=== PATIENT | female | born 1965 | race Caucasian/White ===

== ENCOUNTER 2017-04-10 14:16 | Outpatient (RCR) | payer SELFPAY | END 2017-04-26 23:59 | LOC: NS 14:16 | PROVIDERS: Family Provider Family Medicine; PCP Family Medicine; Visit Provider Family Medicine | DX: E66.9 Obesity, unspecified (principal); Z68.30 Body mass index [BMI] 30.0-30.9, adult; Z71.3 Dietary counseling and surveillance | CPT/HCPCS: 97803 ==

== ENCOUNTER 2017-06-20 14:17 | Outpatient (RCR) | payer OTHER, SELFPAY | END 2017-06-24 23:59 | LOC: NS 14:17 | PROVIDERS: Family Provider Family Medicine; PCP Family Medicine; Visit Provider Family Medicine | DX: E66.9 Obesity, unspecified (principal); Z68.30 Body mass index [BMI] 30.0-30.9, adult; Z71.3 Dietary counseling and surveillance | CPT/HCPCS: 97803 ==

== ENCOUNTER 2017-07-18 14:00 | Outpatient (RCR) | payer OTHER, SELFPAY | END 2017-07-24 23:59 | LOC: NS 14:00 | PROVIDERS: Family Provider Family Medicine; PCP Family Medicine; Visit Provider Family Medicine | DX: E66.9 Obesity, unspecified (principal); Z68.30 Body mass index [BMI] 30.0-30.9, adult; Z71.3 Dietary counseling and surveillance | CPT/HCPCS: 97803 ==

== ENCOUNTER 2017-08-01 14:07 | Outpatient (RCR) | payer OTHER, SELFPAY | END 2017-08-24 23:59 | LOC: NS 14:07 | PROVIDERS: Family Provider Family Medicine; PCP Family Medicine; Visit Provider Family Medicine | DX: E66.9 Obesity, unspecified (principal); Z68.30 Body mass index [BMI] 30.0-30.9, adult; Z71.3 Dietary counseling and surveillance | CPT/HCPCS: 97803 ==

== ENCOUNTER 2017-09-12 16:49 | Outpatient (RCR) | payer SELFPAY | END 2017-09-23 23:59 | LOC: NS 16:49 | PROVIDERS: Family Provider Family Medicine; PCP Family Medicine; Visit Provider Family Medicine | DX: E66.9 Obesity, unspecified (principal); Z68.30 Body mass index [BMI] 30.0-30.9, adult; Z71.3 Dietary counseling and surveillance | CPT/HCPCS: 97803 ==

== ENCOUNTER → 2017-09-29 14:54 | Outpatient (CLI) | payer SELFPAY ==
[2017-09-29 17:44] LABS: Erythrocyte Sedimentation Rate 4 mm/hr (0-30)
[2017-09-29 17:48] LABS: Mean Corp Hgb Conc 33.3 g/gl (32-36); Mean Corpuscular Hgb 30.7 pg (27.0-32.0); Mean Corpuscular Volume 92.1 fL (81-99); Mean Platelet Vol. 10.7 fl (6.2-12.0); Platelet Count 259 K/mm3 (150-450); RBC Distribution Width CV 11.4 % (11.6-14.6); RBC Distribution Width SD 38.4 fl (35.1-43.9); Red Blood Count 4.56 M/mm3 (4.2-5.4); White Blood Count 5.9 K/mm3 (4.4-11.0)
[2017-09-29 17:52] LABS: Scan Indicated on CBC? Y/N NO
[2017-09-29 17:55] LABS: International Normalized Ratio 0.9; Prothrombin Time (Protime)PT. 12.6 SECONDS (11.7-14.9)
[2017-09-29 17:56] LABS: Partial Thromboplast Time 29.5 Seconds (24.1-36.2)
[2017-09-29 18:00] LABS: ALB/GLOB Ratio 1.1 RATIO (0.9-2.4); AST(SGOT) 39 U/L (15-37); Alanine Aminotransfer ALT/SGPT 56 U/L (13-56); Albumin, Serum 3.9 g/dL (3.2-5.0); Alkaline Phosphatase 105 U/L (45-117); Anion Gap 6 (5-15); BUN 17 mg/dL (7-18); BUN/Creat Ratio 22.1 RATIO (10-20); CRP < 2.90 mg/L (0.0-3.0); Chloride 103 mmol/L (98-107); Creatinine, Serum 0.77 mg/dL (0.55-1.02); EST Glomerular Filtration Rate 83 mL/min (>60); Est Glom Filt Rate - Afr Amer 101 mL/min (>60); Globulin 3.5 g/dL (2.2-4.2); Glucose 99 mg/dL (74-106); Potassium 3.7 mmol/L (3.5-5.1); Protein, Total 7.4 g/dL (6.4-8.2); Sodium Level 139 mmol/L (136-145)
[2017-10-03 09:19] LABS: ANTINUCLEAR ANTIBODIES DIRECT Negative (Negative)
== END ==
PROVIDERS: Family Provider Family Medicine; PCP Family Medicine; Visit Provider Nurse Practitioner Family
DX: L98.9 Disorder of the skin and subcutaneous tissue, unspecified (principal)
CPT/HCPCS: 36415; 80053; 85027; 85610; 85652; 85730; 86038; 86140

== ENCOUNTER 2017-11-07 14:28 | Outpatient (RCR) | payer SELFPAY | END 2017-11-24 23:59 | LOC: NS 14:28 | PROVIDERS: Family Provider Family Medicine; PCP Family Medicine; Visit Provider Family Medicine | DX: E66.9 Obesity, unspecified (principal); Z68.30 Body mass index [BMI] 30.0-30.9, adult; Z71.3 Dietary counseling and surveillance | CPT/HCPCS: 97803 ==

== ENCOUNTER 2017-12-12 08:53 | Outpatient (RCR) | payer SELFPAY | END 2017-12-24 23:59 | LOC: NS 08:53 | PROVIDERS: Family Provider Family Medicine; PCP Family Medicine; Visit Provider Family Medicine | DX: E66.9 Obesity, unspecified (principal); Z68.30 Body mass index [BMI] 30.0-30.9, adult; Z71.3 Dietary counseling and surveillance | CPT/HCPCS: 97803 ==

== ENCOUNTER 2018-01-09 08:13 | Outpatient (RCR) | payer SELFPAY | END 2018-01-24 23:59 | LOC: NS 08:13 | PROVIDERS: Family Provider Family Medicine; PCP Family Medicine; Referring Provider Family Medicine; Visit Provider Family Medicine | DX: E66.9 Obesity, unspecified (principal); Z68.30 Body mass index [BMI] 30.0-30.9, adult; Z71.3 Dietary counseling and surveillance | CPT/HCPCS: 97803 ==

== ENCOUNTER → 2018-03-22 11:11 | Outpatient (CLI) | payer SELFPAY ==
[2018-03-22 14:39] LABS: Free T3 2.7 pg/mL (2.18-3.98); T4 Free Direct 0.81 ng/dL (0.76-1.46); Thyroid Stim Hormone (TSH) 2.71 uIU/mL (0.358-3.74)
== END ==
PROVIDERS: Family Provider Family Medicine; PCP Family Medicine; Referring Provider Family Medicine; Visit Provider Family Medicine
DX: R53.83 Other fatigue (principal)
CPT/HCPCS: 36415; 84439; 84443; 84481

== ENCOUNTER 2018-03-28 13:33 | Outpatient (RCR) | payer SELFPAY | END 2018-03-28 15:34 | disposition home or self-care (01) | LOC: NS 13:33 | PROVIDERS: Family Provider Family Medicine; PCP Family Medicine; Referring Provider Family Medicine; Visit Provider Family Medicine | DX: E66.9 Obesity, unspecified (principal); Z68.30 Body mass index [BMI] 30.0-30.9, adult; Z71.3 Dietary counseling and surveillance | CPT/HCPCS: 97803 ==

== ENCOUNTER → 2019-01-04 14:07 | Outpatient (CLI) | payer MEDICAID, SELFPAY ==
[2018-10-12 16:23] VITALS: BMI 28.9
[2019-01-04 13:09] VITALS: BMI 28.9
--- NOTE | 2019-01-04 14:13 | BI_ITS ---
BILATERAL DIGITAL MAMMOGRAM WITH TOMOSYNTHESIS: Mediolateraloblique and craniocaudal views demonstrate no evidence of dominant parenchymal masses. No cluster of microcalcifications or architectural distortion is seen. No evidence of skin thickening is identified. There has been no significant change since 07/21/2016 . Breast Density: The breast tissue is almost entirely fatty. CAD was used to assist in final assessment. BI/SCREEN MAMM (CAD) W/MIREILLE BILAT IMPRESSION: : NORMAL MAMMOGRAM BILATERALLY. ASSESSMENT CATEGORY: FINAL ASSESSMENT: BI-RAD CATEGORY I (NEGATIVE) YEARLY MAMMOGRAPHY RECOMMENDED Approximately 10% of breast cancers are not detected by mammography. A normal mammogram should not delay biopsy of a clinically suspicious abnormality. [id number] Electronically Signed: Thiago Hill, at 17:17 EDT Tel , Service support ,
[2019-01-08 16:44] LABS: HPV APTIMA, High Risk Negative (Negative)
== END ==
PROVIDERS: Family Provider Family Medicine; PCP Family Medicine; Referring Provider Nurse Practitioner Women's Health; Visit Provider Nurse Practitioner Women's Health
DX: Z12.4 Encounter for screening for malignant neoplasm of cervix (principal)
CPT/HCPCS: 77063; 77067; 87624; 88175; G0145

== ENCOUNTER → 2020-01-06 12:13 | Outpatient (CLI) | payer MEDICAID, SELFPAY ==
[2019-01-04 13:09] VITALS: BMI 28.9
--- NOTE | 2020-01-06 12:13 | BI_ITS ---
MAMMOGRAPHY - BILATERAL SCREENING REASON FOR EXAM: Female, 54 years old. Routine annual screening examination. PERTINENT HISTORY: Non-contributory. TECHNIQUE: Digital bilateral breast mireille (3D mammographic acquisition) in the CC and MLO projections. 2-D mediolateral oblique (MLO) and craniocaudad (CC) views of both breasts were obtained. CAD: Full Field Digital Mammography with Computer Added Detection was performed. COMPARISON: Comparison is made with prior study dated 01/04/2019 and 07/21/2016. FINDINGS: Breast Composition: There are scattered areas of fibroglandular density. There are no dominant masses or suspicious calcifications. Stable small benign appearing bilateral axillary lymph nodes. No other significant abnormalities are identified. There has been no significant change since the prior study. BI/SCREEN MAMM (CAD) W/MIREILLE BILAT IMPRESSION: Stable bilateral screening mammogram. Yearly follow-up mammogram recommended. (A) ASSESSMENT CATEGORY: BIRADS Category 2: Benign. A letter regarding these results will be sent to the patient by the facility within 30 days. Approximately 10% of breast cancers are not detected by mammography. A normal mammogram should not delay biopsy of a clinically suspicious abnormality. [id number] Electronically Signed: Bronson Hare, at 15:29 EDT , Service support ,
== END ==
PROVIDERS: PCP Family Medicine; Referring Provider Nurse Practitioner Women's Health; Visit Provider Nurse Practitioner Women's Health
DX: Z12.31 Encounter for screening mammogram for malignant neoplasm of breast (principal)
CPT/HCPCS: 77063; 77067

== ENCOUNTER → 2020-07-08 08:28 | Outpatient (CLI) | payer MEDICAID, SELFPAY ==
[2020-01-06 12:52] VITALS: BMI 27.3
[2020-07-08 10:23] LABS: Absolute Lymphocyte Count 2.08 X10^3/uL (0.83-4.51); Absolute Neutrophil Count 2.4 X10^3/uL (2.0-7.7); Basophil# 0.03 X10^3/uL; Basophil% 0.6 % (0-1); Hematocrit 42.3 % (37-47); Hemoglobin 13.7 g/dL (12.0-15.0); Lymphocyte # 2.08 X10^3/ul (4.0); Lymphocyte % 42.5 % (19-41); Mean Corp Hgb Conc 32.4 g/dL (32-36); Mean Corpuscular Volume 95.7 fL (81-99); Mean Platelet Vol. 10.3 fl (6.2-12.0); Monocyte# 0.32 X10^3/uL; Monocyte% 6.5 % (0-10); NRBC Flagged by Analyzer 0 % (0-5); Neutrophil # 2.36 X10^3/uL (2.7-7.7); Neutrophil % 48.4 % (47-70); Platelet Count 272 K/mm3 (150-450); RBC Distribution Width CV 11.8 % (11.6-14.6); RBC Distribution Width SD 40.8 fl (35.1-43.9); Red Blood Count 4.42 M/mm3 (4.2-5.4); White Blood Count 4.9 K/mm3 (4.4-11.0)
[2020-07-08 10:43] LABS: Vitamin D,25 Hydroxy 41.3 ng/mL
[2020-07-08 10:44] LABS: ALB/GLOB Ratio 1.1 RATIO (0.9-2.4); AST(SGOT) 20 U/L (15-37); Alanine Aminotransfer ALT/SGPT 29 U/L (13-56); Albumin, Serum 3.9 g/dL (3.2-5.0); Alkaline Phosphatase 97 U/L (45-117); Anion Gap 2 (5-15); BUN 16 mg/dL (7-18); BUN/Creat Ratio 19.2 RATIO (10-20); Calcium,Total 9.5 mg/dL (8.5-10.1); Chloride 105 mmol/L (98-107); Cholesterol 219 mg/dL (200); Creatinine, Serum 0.83 mg/dL (0.55-1.02); EST Glomerular Filtration Rate 75 mL/min (>60); Est Glom Filt Rate - Afr Amer 91 mL/min (>60); Globulin 3.7 g/dL (2.2-4.2); Glucose 86 mg/dL (74-106); High Density Lipoprotein 88 mg/dL; Potassium 4.3 mmol/L (3.5-5.1); Protein, Total 7.6 g/dL (6.4-8.2); Sodium Level 139 mmol/L (136-145); Triglycerides 70 mg/dL; Very Low Density Lipoprotein 14 mg/dL (5-40)
== END ==
PROVIDERS: PCP Family Medicine; Referring Provider Family Medicine; Visit Provider Family Medicine
DX: R53.83 Other fatigue (principal); E55.9 Vitamin D deficiency, unspecified; Z13.220 Encounter for screening for lipoid disorders
CPT/HCPCS: 36415; 80053; 80061; 82306; 85025

== ENCOUNTER → 2020-09-17 12:51 | Outpatient (CLI) | payer MEDICAID, SELFPAY ==
[2020-01-06 12:52] VITALS: BMI 27.3
--- NOTE | 2020-09-17 12:55 | RAD_ITS ---
STUDY: X-RAY - PELVIS AND LEFT HIP REASON FOR EXAM: Female, 54 years old. Hip pain. TECHNIQUE: 3 views of the pelvis and hip. COMPARISON: None. FINDINGS: There is a non-specific bowel gas pattern. Clips in the left side of the pelvis. Normal bilateral iliac wings, sacroiliac joints and visualized sacrum. Normal bilateral superior and inferior pubic rami. Normal pubic symphysis. Normal bilateral ischial tuberosities. Normal visualized femoral head. Normal acetabulum. Normal hip joint. RAD/HIP, UNI W/ Pelvis 2-3 Views IMPRESSION: No abnormality of the pelvis or hips. No acute abnormality, erosions or periostitis. Electronically Signed: Trav Chun MD at 13:27 EDT , Service support ,
== END ==
PROVIDERS: PCP Family Medicine; Referring Provider Family Medicine; Visit Provider Family Medicine
DX: M25.552 Pain in left hip (principal)
CPT/HCPCS: 73502

== ENCOUNTER → 2020-11-10 12:48 | Outpatient (CLI) | payer MEDICAID, SELFPAY ==
[2020-01-06 12:52] VITALS: BMI 27.3
--- NOTE | 2020-11-10 12:50 | MRI_ITS ---
STUDY: MRI LEFT HIP WITH AND WITHOUT CONTRAST REASON FOR EXAM: Left hip pain. TECHNIQUE: Standardized fat and water weighted pulse sequences were obtained in all 3 orthogonal planes before and after intravenous administration of 14 mL of Dotarem. COMPARISON: Radiographs 09/17/2020. FINDINGS: Normal hip joint without articular joint space narrowing. Normal acetabulum. Normal labrum. Normal femoral head. Normal femoral neck and intratrochanteric region. There is no bone edema of the visualized proximal left femur or acetabulum. There is no abnormal contrast enhancement of the visualized proximal left femur or acetabulum. There is peritendinitis of the left gluteus minimus tendon with peritendinous contrast enhancement (postcontrast T1 axial images 15-17). Normal gluteus medius and iliopsoas tendons and distal insertions. There is mild contrast enhancement of left greater trochanteric bursitis (postcontrast T1 coronal images 8-10). Normal superior and inferior pubic rami. There are mild degenerative changes of the pubic symphysis with slight bone marrow edema in the right parasymphyseal bone (inversion recovery coronal image 22). Normal ischial tuberosity. Normal origin of the hamstring tendons. Normal visualized iliac wing, sacroiliac joint, and sacral ala. There is a nabothian cyst (inversion recovery coronal image 15). MRI/Lower Ext Joint Only W/WO Cont IMPRESSION: Peritendinitis of the left gluteus minimus tendon and mild left greater trochanteric bursitis. Mild degenerative changes of the pubic symphysis with slight bone marrow edema in the right parasymphyseal bone. No demonstrated bone marrow infiltrative lesion of the proximal left femur or acetabulum. Electronically Signed: Rei Serra MD at 7:59 EDT Tel , Service support ,
== END ==
PROVIDERS: Referring Provider Orthopaedic Surgery; Visit Provider Orthopaedic Surgery
DX: R93.89 Abnormal findings on diagnostic imaging of other specified body structures (principal)
CPT/HCPCS: 73723; A9575

== ENCOUNTER → 2021-03-10 13:15 | Outpatient (CLI) | payer MEDICAID, SELFPAY ==
--- NOTE | 2021-03-10 13:16 | BI_ITS ---
MAMMOGRAPHY - BILATERAL SCREENING REASON FOR EXAM: Female, 55 years old. Routine annual screening examination. PERTINENT HISTORY: Non-contributory. TECHNIQUE: Digital bilateral breast mireille (3D mammographic acquisition) in the CC and MLO projections. 2-D mediolateral oblique (MLO) and craniocaudad (CC) views of both breasts were obtained. CAD: Full Field Digital Mammography with Computer Added Detection was performed. COMPARISON: Comparison is made with prior study dated 01/06/2020 and 01/04/2019. FINDINGS: Breast Composition: There are scattered areas of fibroglandular density. There are no dominant masses or suspicious calcifications. Stable small benign appearing bilateral axillary lymph nodes. No other significant abnormalities are identified. There has been no significant change since the prior study. BI/SCRN MAMM (CAD)W/MIREILLE BILAT IMPRESSION: Stable bilateral screening mammogram. Yearly follow-up mammogram recommended. (A) ASSESSMENT CATEGORY: BIRADS Category 2: Benign. A letter regarding these results will be sent to the patient by the facility within 30 days. Approximately 10% of breast cancers are not detected by mammography. A normal mammogram should not delay biopsy of a clinically suspicious abnormality. [id number] Electronically Signed: Bronson Hare MD at 13:57 EST , Service support ,
== END ==
PROVIDERS: Referring Provider Nurse Practitioner Women's Health; Visit Provider Nurse Practitioner Women's Health
DX: Z12.31 Encounter for screening mammogram for malignant neoplasm of breast (principal)
CPT/HCPCS: 77063; 77067

== ENCOUNTER → 2021-03-10 16:51 | Outpatient (CLI) | payer MEDICAID, SELFPAY ==
--- NOTE | 2021-03-10 17:50 | MRI_ITS ---
EXAM: MR HEAD WITHOUT AND WITH INTRAVENOUS CONTRAST CLINICAL INDICATION: MENTAL STATUS CHANGE memory loss. balance issues TECHNIQUE: Multiplanar and multisequence MR images of the brain were obtained without and with intravenous contrast. This report was created using [employer] report [employer] technology. CONTRAST: IV dotarem 14 ml COMPARISON: None. FINDINGS: BRAIN AND EXTRA-AXIAL SPACES: Increased FLAIR regions in the brain may signify early microvascular ischemic changes, a demyelinating process, vasculitis, or sequela related to migraines. The lesion do not enhance. If this is a demyelinating process, there are no active plaques. No intra- or extra-axial hemorrhage. No intracranial mass or mass effect. Posterior fossa structures are unremarkable. Ventricles are appropriate for age. No hydrocephalus. Basal cisterns are patent. SELLA: Unremarkable. Normal sella turcica, pituitary gland, infundibular stalk, optic chiasm and hypothalamus. AUDITORY SYSTEM: Unremarkable. The internal auditory canals are patent. BONES/JOINTS: Unremarkable. No discrete lytic or blastic abnormalities. SINUSES: Unremarkable as visualized. Clear. MASTOID AIR CELLS: Unremarkable as visualized. Clear. ORBITS: Unremarkable as visualized. Both globes, extraocular muscles, optic nerves and retrobulbar fat appear unremarkable. VASCULATURE: Unremarkable as visualized. Normal flow voids in the major intracranial circulation. MRI/Brain W/WO Contrast IMPRESSION: Increased FLAIR regions in the brain may signify early microvascular ischemic changes, a demyelinating process, vasculitis, or sequela related to migraines. The lesion do not enhance. If this is a demyelinating process, there are no active plaques. Electronically Signed: Jose A Shook MD at 18:22 EST , Service support ,
== END ==
DX: R41.0 Disorientation, unspecified (principal); Z12.31 Encounter for screening mammogram for malignant neoplasm of breast
CPT/HCPCS: 70553; 77063; 77067; A9575

== ENCOUNTER 2021-04-08 15:49 | Outpatient (CLI) | payer MEDICAID, SELFPAY | END 2021-04-08 23:59 | disposition short-term general hospital (02) | LOC: MTLAB 15:49 | DX: Z11.59 Encounter for screening for other viral diseases (principal) | CPT/HCPCS: 36415; 86769 ==

== ENCOUNTER → 2021-11-12 | Outpatient (CLI) | payer MEDICAID, SELFPAY ==
[2021-11-12 12:33] LABS: Erythrocyte Sedimentation Rate 7 mm/hr (0-30)
[2021-11-12 12:38] LABS: Hematocrit 43.8 % (37-47); Hemoglobin 14.2 g/dL (12.0-15.0); Mean Corp Hgb Conc 32.4 g/dL (32-36); Mean Corpuscular Hgb 30.8 pg (27.0-32.0); Mean Platelet Vol. 10.6 fl (6.2-12.0); Platelet Count 274 K/mm3 (150-450); RBC Distribution Width SD 42.2 fl (35.1-43.9); Red Blood Count 4.61 M/mm3 (4.2-5.4); White Blood Count 5.4 K/mm3 (4.4-11.0)
[2021-11-12 13:01] LABS: ALB/GLOB Ratio 0.9 RATIO (0.9-2.4); AST(SGOT) 31 U/L (15-37); Alanine Aminotransfer ALT/SGPT 47 U/L (13-56); Albumin, Serum 3.7 g/dL (3.2-5.0); Alkaline Phosphatase 106 U/L (45-117); Anion Gap 7 (5-15); BUN 11 mg/dL (7-18); BUN/Creat Ratio 13.7 RATIO (10-20); CRP < 2.90 mg/L (0.0-3.0); Calcium,Total 9.7 mg/dL (8.5-10.1); Chloride 105 mmol/L (98-107); Cholesterol 235 mg/dL (200); EST Glomerular Filtration Rate 78 mL/min (>60); Est Glom Filt Rate - Afr Amer 95 mL/min (>60); Globulin 3.9 g/dL (2.2-4.2); Glucose 87 mg/dL (74-106); High Density Lipoprotein 65 mg/dL; Protein, Total 7.6 g/dL (6.4-8.2); Rheumatoid Factor < 10.0 IU/mL (<15); Sodium Level 140 mmol/L (136-145); Triglycerides 185 mg/dL; Very Low Density Lipoprotein 37 mg/dL (5-40)
[2021-11-14 15:26] LABS: ANTINUCLEAR ANTIBODIES DIRECT Negative (Negative)
[2021-11-14 15:28] LABS: Lyme Scn Total Ab w/Rflx Negative (Negative)
== END | disposition home or self-care (01) ==
PROVIDERS: PCP Nurse Practitioner Family; Referring Provider Nurse Practitioner Family; Visit Provider Nurse Practitioner Family
DX: M79.10 Myalgia, unspecified site (principal)
CPT/HCPCS: 36415; 80053; 80061; 84439; 84443; 85027; 85652; 86038; 86140; 86431; 86618

== ENCOUNTER → 2022-03-17 | Outpatient (CLI) | payer MEDICAID, SELFPAY ==
--- NOTE | 2022-03-17 11:57 | BI_ITS ---
MAMMOGRAPHY - BILATERAL SCREENING REASON FOR EXAM: Female, 56 years old. Routine annual screening examination. PERTINENT HISTORY: Non-contributory. TECHNIQUE: Digital bilateral breast mireille (3D mammographic acquisition) in the CC and MLO projections. 2-D mediolateral oblique (MLO) and craniocaudad (CC) views of both breasts were obtained. CAD: Full Field Digital Mammography with Computer Added Detection was performed. COMPARISON: Comparison is made with prior study dated 03/10/2021 and 01/06/2020. FINDINGS: Breast Composition: The breasts are almost entirely fatty. There are no dominant masses or suspicious calcifications. No other significant abnormalities are identified. There has been no significant change since the prior study. BI/SCRN MAMM (CAD)W/MIREILLE BILAT IMPRESSION: Stable bilateral screening mammogram. Yearly follow-up mammogram recommended. (A) ASSESSMENT CATEGORY: BIRADS Category 1: Negative. A letter regarding these results will be sent to the patient by the facility within 30 days. Approximately 10% of breast cancers are not detected by mammography. A normal mammogram should not delay biopsy of a clinically suspicious abnormality. [id number] Electronically Signed: Bronson Hare MD at 13:16 EST ,
== END | disposition home or self-care (01) ==
LOC: OPBI 11:56
PROVIDERS: PCP Nurse Practitioner Family; Referring Provider Nurse Practitioner Women's Health; Visit Provider Nurse Practitioner Women's Health
DX: Z12.31 Encounter for screening mammogram for malignant neoplasm of breast (principal)
CPT/HCPCS: 77063; 77067

== ENCOUNTER 2022-07-08 10:00 | Outpatient (RCR) | payer MEDICAID, SELFPAY ==
--- NOTE | 2022-06-16 09:24 | HP.OTEVAL_ITS ---
Patient's Visit Information KUMAR MARCIAL is a 56 year old F, referred to Occupational Therapy by Dr. Baldomero Sen DO, with a diagnosis of left radial styloid tenosynovitis. Date of Evaluation: 06/15/22 Occupational Therapist: Jonna Weber, OTR/Liseth, CHT - Subjective This 56 year old female was seen for OT eval with dx of left radial styloid tenosynovitis. pt states she does have hx of CTS. pt states she has had CTS for at lease 2 years. pt states this is a sharp shooting pain at times. Pts tingling is better but left wrist is painful- pt states she did she Dr. Sen about 4 weeks ago and was given wrist brace that immobilized her thumb. pt states wearing the brace has improved her symptoms but still has pain with movement and use of her left hand. 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 pt states painful with tasks- pt states she would like to decrease her pain to return to her PLOF. - Pain left wrist 6 Pain Intensity Range: 6, 8 - ROM Wrist: right 65/60 left 50/30 Opposition: Kapandji Opposition scale right 10 left 10 ROM Comments: right RD [address] 20 UD 30. no noted deficits with thumb ROM - Strength Pillowcase Maker: right 45# left 22# Lateral Pinch: right 8# left 6# Tripod Pinch: right 12# left 8# Strength Comments: pain with resistive chinese medicine practitioner/pinch testing - Sensation Sensation Comments: denies - Special Tests WHAT Test: left positive - Quick DASH-Disab of Arm,Shoulder& Hand Quick DASH Score: 70.4525 - Goals Goal:100% adherence to protocol: Yes Comment: DeQuervain's guidelines Goal:ROM equal to unaffected hand: Yes Goal:Pillowcase Maker/Pinch strength at least 75% of unaffected hand: Yes Goal:No pain with affected hand use: Yes Goal:Full use of affected hand in daily activities including: Yes - Rehabilitation General Assessment: pt demo with positive symptoms of left radial styloid tenosynovitis. pain and weakness are limiting pts IND. with ADLs and IADLs at this time. pt would benefit from skilled OT services 2-3x week for [address] Daily with dex. and conservative therapy for dx as pt has declined cortisone shot at this time. Today therapist ed. pt on POC as Iontophoresis is not covered under her insurance and this may be out of pocket cost. pt demo understanding and agrees to POC. Rehabilitation Potential: Good - Anticipated Interventions A/AAROM/PROM, Strengthening, Triggerpoint Release, Desensitization, Modalities, Orthoses, Joint Protection/Energy Conservation, Education re assistive Equipment, Education re Diagnosis, Home Program Other Interventions: iontophoresis with dexamethasone - Visit Plan Frequency: 2-3x /Week Duration: 4 Weeks General Plan: initiate ed. on friction massage for HEP. isometric and eccentric ex. will get order for dexamethasone to initiate drSanket request for Ionto TEXT: Thank you for the opportunity to evaluate your patient. For Medicare and Medicare HMO plans, please review the plan of care and approve it. It will need to be FAXED BACK to us at [phone] for Medicare purposes. Please let me know if there are questions or concerns regarding this plan of care. Physician Sign ature: Date:
--- NOTE | 2022-07-08 10:25 | HP.OTDCSUM_ITS ---
It has been my pleasure to treat KUMAR MARCIAL under orders from Dr. Baldomero Sen DO, for the diagnosis of left radial styloid tenosynovitis for a total of 10 visit(s). Please see the following information for a summary of their discharge status. % Improvement: 0 Objective/Function: pt continues to demo pain throughout the 1st dorsal compartment-. no change in strength from inital eval Patient Goals: Decrease Pain, Use Hand/Wrist/Arm Normally Again, Be More Independent in ADLS Goal:100% adherence to protocol: Yes Goal:ROM equal to unaffected hand: Yes Goal:Automotive Generator Repairer/Pinch strength at least 75% of unaffected hand: Yes Goal:No pain with affected hand use: Yes Goal:Full use of affected hand in daily activities including: Yes Plan: D/C due to lack of progress Discharge Comments: pt was seen 10 visits with no change in symptoms. pt and therapist discussed pt returning to for further intervention. pt agrees with d/c If there are questions or concerns regarding this patient's occupational therapy, please fell free to call me at [phone]. Thank you for the referral of this patient. Sincerely, Jonna Weber, OTR/L, CHT
== END 2022-07-08 12:35 | disposition home or self-care (01) ==
LOC: OT 10:00
PROVIDERS: PCP Nurse Practitioner Family; Referring Provider Orthopaedic Surgery; Visit Provider Orthopaedic Surgery
DX: M65.4 Radial styloid tenosynovitis [de Quervain] (principal)
CPT/HCPCS: 97033; 97035; 97140; 97166; 97530

== ENCOUNTER → 2022-08-08 | Outpatient (CLI) | payer MEDICAID, SELFPAY ==
--- NOTE | 2022-08-08 11:35 | RAD_ITS ---
INDICATION: INJURY EXAMINATION/TECHNIQUE: X-RAY - LEFT XR Knee 3 Views 3 VIEWS COMPARISON: FINDINGS: SOFT TISSUES: No soft tissue swelling or gas. No radiopaque foreign body. BONES/JOINTS: Mild tricompartmental joint space narrowing. RAD/Knee 3 Views IMPRESSION: Mild osteoarthritis. Electronically Signed: Audi Truong MD, AYAN at 18:56 EDT ,
== END | disposition home or self-care (01) ==
LOC: MTRAD 11:34
PROVIDERS: PCP Nurse Practitioner Family; Referring Provider Nurse Practitioner Family; Visit Provider Nurse Practitioner Family
DX: S89.92XA Unspecified injury of left lower leg, initial encounter (principal); X58.XXXA Exposure to other specified factors, initial encounter
CPT/HCPCS: 73562

== ENCOUNTER → 2023-03-24 | Outpatient (CLI) | payer MEDICAID, SELFPAY ==
--- NOTE | 2023-03-24 10:37 | BI_ITS ---
MAMMOGRAPHY - BILATERAL SCREENING 3-D TOMOSYNTHESIS REASON FOR EXAM: Female, 57 years old. Routine annual screening mammogram. PERTINENT HISTORY: No significant family history. TECHNIQUE: 2-D mammograms and 3-D Tomosynthesis of the breast (s) were performed. CAD was performed. COMPARISON: March 17, 2022, March 10, 2021 FINDINGS: The breast composition is almost entirely fat. Stable normal lymph nodes and scattered benign calcifications. No dominant masses, suspicious microcalcifications, asymmetries, skin thickening or nipple retraction BI/SCRN MAMM (CAD)W/MIREILLE BILAT IMPRESSION: No interval change and no mammographic signs of malignancy. Routine yearly mammogram recommended. ASSESSMENT CATEGORY: BIRADS Category 2: Benign. A letter regarding these results will be sent to the patient by the facility within 30 days. FOLLOW UP RECOMMENDATION: Yearly follow up mammogram recommended. (A) Approximately 10% of breast cancers are not detected by mammography. A normal mammogram should not delay biopsy of a clinically suspicious abnormality. Electronically Signed: Trav Chun MD at 14:18 EST ,
--- OUTSIDE RECORDS SUMMARY | 2023-03-24 10:56 | XMS RPT_ITS | CCD ---
Author Name Unknown Address [address] [place] [address] Organization [facility] Team Providers Care Maintenance Aide Name Role Phone Laura Zhou LPN Unavailable Unavailab Laura Montalvo LPN Unavailable Unavailab Augustina Guerraica N Unavailable Sara Diaz Unavailable [phone] Augustina Goreica Gerard Unavailable Laura Zhou LPN Unavailable Unavailab Joel Guerrassica N Unavailable Bao Socorro N Unavailable Sara Diaz Unavailable [phone] STANLEY, CINDY Primary Care Unavailable FALLVERONICA CADE Referring Unavailable FALLVERONICA CADE Attending Unavailable STANLEY, CINDY Referring Unavailable STANLEY, CINDY Primary Care Unavailable FALLVERONICA CADE Attending Unavailable STANLEY, CINDY Primary Care Unavailable FALLVERONICA CADE Referring Unavailable FALLVERONICA CADE Attending Unavailable RODRÍGUEZ BOWLES Admitting Unavailable RODRÍGUEZ BOWLES Attending Unavailable BOWLES, RODRÍGUEZ Primary Care Unavailable SWAPNA VIVEROS CNP Attending Unavailable SWAPNA VIVEROS CNP Admitting Unavailable SWAPNA VIVEROS CNP Primary Care Unavailable SWAPNA VIVEROS CNP Consulting Unavailable PROVIDER, UNKNOWN Consulting Unavailable PROVIDER, UNKNOWN Consulting Unavailable SWAPNA VIVEROS CNP Attending Unavailable SWAPNA VIVEROS CNP Admitting Unavailable SWAPNA VIVEROS CNP Primary Care Unavailable SWAPNA VIVEROS CNP Consulting Unavailable PROVIDER, UNKNOWN Consulting Unavailable PROVIDER, UNKNOWN Consulting Unavailable SWAPNA VIVEROS CNP Consulting Unavailable SWAPNA VIVEROS CNP Attending Unavailable SWAPNA VIVEROS CNP Admitting Unavailable SWAPNA VIVEROS CNP Primary Care Unavailable PROVIDER, UNKNOWN Consulting Unavailable PROVIDER, UNKNOWN Consulting Unavailable SWAPNA VIVEROS CNP Attending Unavailable SWAPNA VIVEROS CNP Admitting Unavailable SWAPNA VIVEROS CNP Primary Care Unavailable SWAPNA VIVEROS CNP Consulting Unavailable PROVIDER, UNKNOWN Consulting Unavailable PROVIDER, UNKNOWN Consulting Unavailable Allergies Allergy Classification Reported Allergen(s) Allergy Type Date of Onset Reaction(s) Facility (9 sources) Honey bee venom; Translations: [HONEY BEE VENOM] allergy to substance 7 [facility] Work Phone: Medications Completed/Discontinued Medications Medication Drug Class(es) Dates Sig (Normalized) Sig (Original) predniSONE 50 mg oral tablet (13 sources) Corticosteroid Start: 04-04-2016 End: 12-13-2016 PREDNISONE 50 MG TABS one tablet daily PREDNISONE [id number] Miranda Vallecillo Problems Active Problems Problem Classification Problem Date Documented Da te Episodic/Chronic Other and unspecified benign neoplasm (1 source) Hemangioma of skin and subcutaneous tissue; Translations: [Hemangioma of skin and subcutaneous tissue] Onset: 09-12-2022 Episodic Other nervous system disorders (7 sources) Ulnar neuritis; Translations: [Lesion of ulnar nerve, unspecified upper limb] Onset: 10-18-2016 10-18-2016 Chronic Residual codes; unclassified (1 source) Family history of diseases of the blood and blood-forming organs and certain disorders involving the immune mechanism; Translations: [Family history of diseases of the blood and blood-forming organs and certain disorders involving the immune mechanism] Onset: 09-12-2022 Episodic Unclassified (3 sources) Adult health examination ; Translations: [Encounter for general adult medical examination without abnormal findings] Onset: 12-16-2016 12-16-2016 Past or Other Problems Problem Classification Problem Date Documented Date Episodic/Chronic Other connective tissue disease (9 sources) Radial styloid tenosynovitis; Translations: [Radial styloid tenosynovitis [de Quervain]] Onset: 04-04-2016 04-04-2016 Episodic Other non-traumatic joint disorders (7 sources) Pain in wrist; Translations: [Pain in right wrist] Onset: 10-18-2016 10-18-2016 Episodic Results Test Name Value Interpretation Reference Range Facil ity Vital Signs Date Time Vital Sign Value Performing Clinician Facility 12-16-2016 14:07-0400 BMI (Body Mass Index) 30.15 kg/m2 Laura Zhou LPN [facility] Work Phone: 12-16-2016 14:07-0400 Body Temperature 98.9 [degF] Laura Zhou LPN [facility] Work Phone: 12-16-2016 14:07-0400 BP Diastolic 68 mm[Hg] Laura Zhou LPN [facility] Work Phone: 12-16-2016 14:07-0400 BP Systolic 104 mm[Hg] Laura Zhou LPN [facility] Work Phone: 12-16-2016 14:07-0400 Height 154.94 cm Laura Zhou LPN [facility] Work Phone: 12-16-2016 14:07-0400 Pulse (Heart Rate) 82 /min Laura Zhou LPN [facility] Work Phone: 12-16-2016 14:07-0400 Respiratory Rate 13 /min Laura Zhou LPN [facility] Work Phone: 12-16-2016 14:07-0400 Weight 72.39 kg Laura Zhou LPN [facility] Work Phone: 10-18-2016 14:24-0400 BMI (Body Mass Index) 28.34 kg/m2 [facility] Work Phone: 10-18-2016 14:24-0400 Weight 72.58 kg [facility] Work Phone: 04-04-2016 09:32-0500 BMI (Body Mass Index) 30.85 kg/m2 [facility] Work Phone: 04-04-2016 09:32-0500 Body Temperature 98.2 [degF] [facility] Work Phone: 04-04-2016 09:32-0500 BP Diastolic 68 mm[Hg[facility] Work Phone: 04-04-2016 09:32-0500 BP Systolic 120 mm[Hg] [facility] Work Phone: 04-04-2016 09:32-0500 BSA (Body Surface Area) 1.83 m2 [facility] Work Phone: 04-04-2016 09:32-0500 Height 160.02 cm [facility] Work Phone: 04-04-2016 09:32-0500 Pulse (Heart Rate) 91 /min [facility] Work Phone: 04-04-2016 09:32-0500 Respiratory Rate 17 /min [facility] Work Phone: 04-04-2016 09:32-0500 Weight 79.02 [facility] Work Phone: Encounters Encounter Date Encounter Type Care Provider Facility Start: 11-12-2022 End: 11-13-2022 ambulatory SWAPNA SHARMA [facility] Start: 10-16-2022 End: 10-17-2022 ambulatory SWAPNA EDITH [facility] Start: 09-19-2022 End: 09-19-2022 ambulatory SWAPNA DEPUTY FELONY CLERK [facility] Start: 09-12-2022 End: 09-12-2022 ambulatory SWAPNA SHARMA [facility] Start: 04-11-2022 End: 04-11-2022 ambulatory RODRÍGUEZ BOWLES [facility] Start: 01-20-2021 ambulatory CINDY JADEN Facility:[facility] Start: 01-20-2021 ambulatory CINDY STANLEY Facility:[facility] Plan of Treatment Date Care Activity Detail Author Start: 12-16-2016 End: 12-16-2016 Appointment Appointment [facility] Work Phone: Start: 12-13-2016 End: 12-13-2016 Appointment Appointment [facility] Work Phone: Start: 10-19-2016 End: 10-19-2016 Physical Therapy General Physical Therapy General Rehab [facility], [address] [place] [address], [facility] Work Phone: Start: 10-19-2016 End: 10-19-2016 Physical Therapy General Physical Therapy General Rehab [facility], [address] [place] [address], [facility] Work Phone: Start: 10-18-2016 End: 10-18-2016 EMG EMG [facility] Work Phone: Start: 10-18-2016 End: 10-18-2016 Nerve Conduction Nerve Conduction [facility] Work Phone: Start: 10-18-2016 End: 10-18-2016 Radex wrist complete minimum 3 views X-Ray, Wrist [facility] Work Phone: Start: 10-18-2016 End: 10-18-2016 EMG EMG [facility] Work Phone: Start: 10-18-2016 End: 10-18-2016 Nerve Conduction Nerve Conduction [facility] Work Phone: Start: 10-18-2016 End: 10-18-2016 X-ray exam of wrist X-Ray, Wrist [facility] Work Phone: Payers Date Payer Category Payer Unknown [id number] 1965 Unknown [id number] 2.16. [id number] 1965 Unknown [id number] 2.16. [id number] 1965 Unknown [id number] 2.16. [id number] 1965 Unknown [id number] 2.16.84 [id number] 1965 Unknown [id number] 2.16.8 [id number] 1965 Unknown [id number] 2.16.8 [id number] 1965 Unknown [id number] 2.16.8 [id number] 1965 Unknown [id number] [id number] [id number] Clinical Note 04-11-2022 Note Date & Type Note Facility 04-11-2022 Note [facility] HISTORY & PHYSICAL NAME ACCOUNT SEX AGE ADMIT DISCHARGE PT MED. RECORD# NUMBER DATE DATE TYPE ANIKET, [id number] F 56 04/11/22 2 KUMAR Kapoor [id number] ROOM: [facility] DATE OF : 61 DICTATING PHYSICIAN: Rodríguez Bowles CHIEF COMPLAINT: Screening endoscopy. HISTORY OF PRESENT ILLNESS: Kumar Danielle is a 56-year-old lady referred for screening endoscopy. She has not had bloody stool, black-tarry stool, weight loss, or anorexia. She has never had a colonoscopy. She does note occasional abdominal bloating. She understands the procedure, the prep, the sedation, the risks, and the followup. She has no further questions. PAST MEDICAL HISTORY: (1) Elevated BMI. (2) Weight is 170 pounds 9.6 ounces. BMI is 32.23 kg/m2. (3) Anxiety. (4) Adult ADHD. (5) Rhinosinusitis. (6) Insomnia. (7) Depression. (8) Palpitations. (9) Multiple joint pains. PAST SURGICAL HISTORY: (1) Cholecystectomy. (2) Tubal ligation. MEDICATIONS: Gabapentin, amitriptyline, Concerta, amoxicillin, escitalopram, multivitamins, vitamin C, vitamin D3, Zinc, and calcium supplements (see med reconciliation sheet). ALLERGIES: Ambien. FAMILY HISTORY: Maternal grandfather, maternal grandmother, and brother had diabetes. Paternal grandfather had heart disease. Mother had TIA. No bleeding diathesis. No anesthetic allergies. SOCIAL HISTORY: Smoking: None. Ethanol: None. The patient works at a [employer]. 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 REVIEW OF SYSTEMS: See above; otherwise noncontributory. PHYSICAL EXAMINATION GENERAL APPEARANCE: Alert lady in no acute distress. SKIN: Normal texture and turgor, not jaundiced. HEENT: EOMI, not icteric. Mucosal surfaces normal. Page 1 of 3 KUMAR DANIELLE History & Physical KUMAR DANIELLE :1965 NECK: No JVD. No thyromegaly. No cervical lymphadenopathy. LUNGS: Chest is clear bilaterally. HEART: Regular rate and rhythm. No gallops, rubs or murmurs noted. ABDOMEN: Soft, rounded, nontender, and nondistended. No mass or hepatosplenomegaly. No flank tenderness. EXTREMITIES: Calves nontender. Fair radial upstroke. NEUROLOGIC: Nonfocal. IMPRESSION/PLAN: 1. Screening endoscopy. The patient wishes to proceed and has no further questions. 2. History of transient ischemic attack in her mother. 3. Diabetes mellitus in the family. The patient has not had diabetes. Dictated By: Rodríguez Bowles MD 04/11/22 08:27 JOB #: [id number] Transcribed By: marita 04/11/22 09:10 Electronically signed by: E-Sign Dr. Rodríguez Bowles MD 04/11/22 19:27 Update to H&P: [ ] No changes: I have examined the patient and reviewed the H&P and there are no changes. [ ] As previously dictated with the following changes: Page 2 of 3 KUMAR DANIELLE History & Physical KUMAR DANIELLE :1965 PHYSICIAN SIGNATURE: TIME: DATE: Page 3 of 3 KUMAR DANIELLE History & Physical [facility] Summary Purpose Family History No Family History Records FoundNo Family History Records FoundNo Family History Records FoundNo Family History Records Found Advance Directives No Advanced Directives Records FoundNo Advanced Directives Records FoundNo Advanced Directives Records FoundNo Advanced Directives Records Found Additional Source Comments INFORMATION SOURCE (unrecogn ized section and content) DATE CREATED AUTHOR AUTHOR'S ORGANIZ ATION 04/11/2022 [facility] DATE CREATED AUTHOR AUTHOR'S ORGANIZ ATION 09/15/2022 [facility] DATE CREATED AUTHOR AUTHOR'S ORGANIZ ATION 11/14/2022 [facility] FOR RECORDS PERTAINING TO PATIENTS WHO ARE OR HAVE BEEN ENROLLED IN A CHEMICAL DEPENDENCY/SUBSTANCEABUSE PROGRAM, SOME INFORMATION MAY BE OMITTED. This clinical summary was aggregated from multiple sources. Caution should be exercised in using it in the provision of clinical care. This summary normalizes information from multiple sources, and as a consequence, information in this document may materially change the coding, format and clinical context of patient data. In addition, data may be omitted in some cases. CLINICAL DECISIONS SHOULD BE BASED ON THE PRIMARY CLINICAL RECORDS. [facility]. provides no warranty or guarantee of the accuracy or completeness of information in this document.
== END | disposition home or self-care (01) ==
LOC: OPBI 10:32
PROVIDERS: PCP Nurse Practitioner Family; Referring Provider Nurse Practitioner Women's Health; Visit Provider Nurse Practitioner Women's Health
DX: Z12.31 Encounter for screening mammogram for malignant neoplasm of breast (principal)
CPT/HCPCS: 77063; 77067

== ENCOUNTER → 2024-01-04 | Outpatient (CLI) | payer MEDICAID, SELFPAY ==
--- NOTE | 2024-01-04 16:49 | US_ITS ---
ACR Level 3 findings have been noted. An addendum which confirms receipt of the report will follow. EXAM: US PELVIS TRANSABDOMINAL AND TRANSVAGINAL, COMPLETE CLINICAL INDICATION: pain, bloating TECHNIQUE: Transabdominal and transvaginal pelvic ultrasound was performed with grayscale and color Doppler imaging. Transvaginal imaging was used for better evaluation of the endometrium and adnexa. COMPARISON: None. FINDINGS: UTERUS/CERVIX: 7.4 cm x 3.8 cm x 2.8 cm. Unremarkable with the exception of 1 cm apparent cervical nabothian cyst. Anteverted. There is no uterine mass. Normal 5 mm endometrial stripe thickness measured on transvaginal exam. RIGHT OVARY: 2 cm x 1.1 cm x 1.5 cm. Non-enlarged, normal echogenicity. Blood flow is present in the right ovary. LEFT OVARY: 2.2 cm x 1.3 cm x 1.7 cm adjacent to what appears to be echogenic bowel. Non-enlarged, normal echogenicity. Blood flow is present in the left ovary. FREE FLUID: None. BLADDER: Unremarkable as visualized. Prominently distended on the transabdominal exam, calculated volume 434 cc. Thin wall. US/Pelvic w/ Transvaginal IMPRESSION: Unremarkable uterus and ovaries with the exception of possibly adherent bowel. Closely adjacent to left ovary according to the medical recruiter''s note and real-time exam. There is history of tubal ligation. CT is suggested for additional evaluation of adherent-appearing bowel in the left adnexa if it is thought to be indicated. Considerations include crowded intrapelvic structures, adnexal scarring with adhesions, and infiltrative neoplasm or inflammation. Electronically Signed: Lucita Loo MD at 20:38 EDT ,
== END | disposition home or self-care (01) ==
LOC: US 16:48
PROVIDERS: PCP Nurse Practitioner Family; Referring Provider Nurse Practitioner Women's Health; Visit Provider Nurse Practitioner Women's Health
DX: R10.2 Pelvic and perineal pain (principal); R14.0 Abdominal distension (gaseous)
CPT/HCPCS: 76830; 76856

== ENCOUNTER → 2024-01-05 | Outpatient (CLI) | payer MEDICAID, SELFPAY ==
[2024-01-05 16:35] LABS: Absolute Lymphocyte Count 2.94 X10^3/uL (0.83-4.51); Absolute Neutrophil Count 6.6 X10^3/uL (2.0-7.7); Basophil# 0.05 X10^3/uL; Basophil% 0.5 % (0-1); Eosinophil# 0.11 X10^3/uL; Eosinophils% 1.1 % (0-5); Hematocrit 46.2 % (37-47); Hemoglobin 14.8 g/dL (12.0-15.0); Lymphocyte # 2.94 X10^3/ul (0.83-4.51); Lymphocyte % 29.2 % (19-41); Mean Corpuscular Hgb 29.3 pg (27.0-32.0); Mean Corpuscular Volume 91.5 fL (81-99); Mean Platelet Vol. 9.9 fl (6.2-12.0); Monocyte# 0.35 X10^3/uL; Monocyte% 3.5 % (0-10); NRBC Flagged by Analyzer 0 % (0-5); Neutrophil # 6.59 X10^3/uL (2.7-7.7); Neutrophil % 65.5 % (47-70); Platelet Count 354 K/mm3 (150-450); RBC Distribution Width CV 12.6 % (11.6-14.6); RBC Distribution Width SD 41.7 fl (35.1-43.9); Red Blood Count 5.05 M/mm3 (4.2-5.4); White Blood Count 10.1 K/mm3 (4.4-11.0)
[2024-01-05 16:39] LABS: Erythrocyte Sedimentation Rate 11 mm/hr (0-30)
[2024-01-05 17:04] LABS: ALB/GLOB Ratio 1.1 RATIO (0.9-2.4); AST(SGOT) 41 U/L (15-37); Alanine Aminotransfer ALT/SGPT 58 U/L (13-56); Albumin, Serum 4.3 g/dL (3.2-5.0); Alkaline Phosphatase 136 U/L (45-117); Anion Gap 6 (5-15); BUN 11 mg/dL (7-18); BUN/Creat Ratio 12.4 RATIO (10-20); CRP 6.15 mg/L (0.0-3.0); Calcium,Total 10.4 mg/dL (8.5-10.1); Chloride 106 mmol/L (98-107); Creatinine, Serum 0.89 mg/dL (0.55-1.02); EST Glomerular Filtration Rate 69 mL/min (>60); Est Glom Filt Rate - Afr Amer 84 mL/min (>60); Free T3 2.6 pg/mL (2.18-3.98); Globulin 3.9 g/dL (2.2-4.2); Glucose 103 mg/dL (74-106); LDH 216 U/L (84-246); Potassium 3.7 mmol/L (3.5-5.1); Protein, Total 8.2 g/dL (6.4-8.2); Sodium Level 139 mmol/L (136-145); T4 Free Direct 0.83 ng/dL (0.76-1.46)
[2024-01-05 23:42] LABS: Vitamin D,25 Hydroxy 57.1 ng/mL
[2024-01-11 00:07] LABS: Beef 0.22 kU/L (Class 0/I); Chocolate <0.10 kU/L (Class 0); Codfish <0.10 kU/L (Class 0); Corn 0.31 kU/L (Class 0/I); Egg, Whole 0.16 kU/L (Class 0/I); Mussels <0.10 kU/L (Class 0); Pork <0.10 kU/L (Class 0); Salmon <0.10 kU/L (Class 0); Shrimp <0.10 kU/L (Class 0); Soybean 0.26 kU/L (Class 0/I); Tuna <0.10 kU/L (Class 0); Vitamin D 1,25-Dihydroxy 62.3 pg/mL (24.8-81.5); Wheat 0.37 kU/L (Class I)
== END | disposition home or self-care (01) ==
LOC: LAB 16:12
PROVIDERS: PCP Nurse Practitioner Family
DX: R14.0 Abdominal distension (gaseous) (principal); R53.83 Other fatigue
CPT/HCPCS: 36415; 80053; 82306; 82652; 83615; 84439; 84443; 84481; 85025; 85652; 86003; 86005; 86140

== ENCOUNTER → 2024-01-08 | Outpatient (CLI) | payer MEDICAID, SELFPAY ==
[2024-01-10 14:48] LABS: Calprotectin, Stool 35 ug/g (0-120)
[2024-01-13 01:07] LABS: Pancreatic Elastase, Fecal > 800 (>200)
== END | disposition home or self-care (01) ==
PROVIDERS: PCP Nurse Practitioner Family
DX: R14.0 Abdominal distension (gaseous) (principal); K58.9 Irritable bowel syndrome, unspecified
CPT/HCPCS: 82653; 83630; 83993

== ENCOUNTER → 2024-01-17 | Outpatient (CLI) | payer MEDICAID, SELFPAY ==
--- NOTE | 2024-01-17 10:04 | US_ITS ---
STUDY: ABDOMINAL ULTRASOUND - RIGHT UPPER QUADRANT; ELASTOGRAPHY REASON FOR VISIT: Female, 58 years old. Fatty infiltration of the liver. TECHNIQUE: Ultrasound evaluation of the right upper quadrant was performed with real-time and static ryan-scale imaging. Point quantification shear wave elastography was performed ([employer]). TECHNICAL QUALITY: Adequate. COMPARISON: Comparison is made with prior study dated December 11, 2015. FINDINGS: Liver: The liver measures 13.8 cm. There is increased echogenicity consistent with fatty infiltration. The bile ducts are within normal limits. There is hepatic color flow. The direction of portal flow is hepatopetal. There is no demonstrated mass lesion. Median liver stiffness measured 7.1 kPa. Gallbladder: The patient is status post cholecystectomy. Common Bile Duct (C.B.D.): The common bile duct measures 4.4 mm. Pancreas: There is increased echogenicity of the pancreas. There is no demonstrated pancreatic mass or cyst. Right Kidney: Normal size of the right kidney. The right kidney measures 10.5 cm x 5.2 cm x 4.5 cm. Normal renal cortex. The right cortex measures 1.3 cm. There is no demonstrated renal mass or cyst. There is no right hydronephrosis. US/ABD Limited w/ Elastography IMPRESSION: 1. Liver stiffness measures 7.1 kPa compatible with F2-F3 (Mild to moderate liver fibrosis) Metavir score. Electronically Signed: Bronson Hare MD at 13:41 EDT ,
== END | disposition home or self-care (01) ==
PROVIDERS: PCP Nurse Practitioner Family
DX: K76.0 Fatty (change of) liver, not elsewhere classified (principal)
CPT/HCPCS: 76705; 76981

== ENCOUNTER 2024-01-23 09:32 | Outpatient (RCR) | payer MEDICAID, SELFPAY | END 2024-01-25 23:59 | LOC: NS 09:32 | PROVIDERS: PCP Nurse Practitioner Family | DX: Z71.3 Dietary counseling and surveillance (principal); Z91.018 Allergy to other foods | CPT/HCPCS: 97802 ==

== ENCOUNTER → 2024-02-02 | Outpatient (CLI) | payer MEDICAID, SELFPAY ==
--- NOTE | 2024-02-02 18:00 | CT_ITS ---
STUDY: CT ABDOMEN AND PELVIS WITH CONTRAST - URINARY TRACT REASON FOR EXAM: Female, 58 years old. abnormal pelvic ultrasound RADIATION DOSAGE (If Supplied By Facility): CTDIvol = ( 16.18 ) mGy, DLP = ( 982.63 ) mGycm TECHNIQUE: Oral and amp; IV Readi-CAT and amp; 100mL Isovue-370 was administered. Transaxial images were obtained from the dome of the diaphragm to the symphysis pubis in the arterial, nephrographic and excretory phases. Multiplanar coronal and sagittal images were reformatted. The protocol utilizes one or more of the following dose reduction techniques: automated exposure control, adjustment of mA and/or kV according to patient size,and/or use of iterative reconstruction technique. COMPARISON: PelvisOct 2023 4:56pm FINDINGS: The visualized lung bases are unremarkable. The visualized portions of the heart are within normal limits. Normal liver. There are surgical clips in the gallbladder fossa consistent with a prior cholecystectomy. Normal spleen. Normal pancreas. Normal bilateral adrenal glands. Normal visualized stomach. Normal small intestine. Normal colon. The appendix is visualized and appears normal. Normal abdominal aorta. No retroperitoneal adenopathy. Normal right kidney. Normal left kidney. Normal urinary bladder. Surgical rafaela are seen near the left ovary consistent with tubal ligation. The sigmoid colon is in close proximity to the left ovary. The uterus is unremarkable. The right ovary is not identified. Normal abdominal wall. Normal osseous structures. CT/Abdomen/Pelvis WITH Contrast IMPRESSION: Unremarkable study. There is no abnormal mass in the pelvis. The sigmoid colon is in close proximity to the left ovary. This correlates with the ultrasound finding. Electronically Signed: Colleen Peter MD at 8:06 EST ,
== END | disposition home or self-care (01) ==
LOC: CT 17:58
PROVIDERS: PCP Nurse Practitioner Family; Referring Provider Obstetrics & Gynecology; Visit Provider Obstetrics & Gynecology
DX: R93.89 Abnormal findings on diagnostic imaging of other specified body structures (principal); R14.0 Abdominal distension (gaseous); R10.2 Pelvic and perineal pain
CPT/HCPCS: 74177; Q9967

== ENCOUNTER → 2024-02-12 | Outpatient (CLI) | payer MEDICAID, SELFPAY | END | disposition home or self-care (01) | LOC: NM 12:51 | PROVIDERS: PCP Nurse Practitioner Family | DX: R14.0 Abdominal distension (gaseous) (principal) | CPT/HCPCS: 78264; A9541 ==

== ENCOUNTER 2024-03-04 10:06 | Outpatient (RCR) | payer MEDICAID, SELFPAY | END 2024-03-26 23:59 | LOC: NS 10:06 | PROVIDERS: PCP Nurse Practitioner Family | DX: Z71.3 Dietary counseling and surveillance (principal); Z91.018 Allergy to other foods | CPT/HCPCS: 97803 ==

== ENCOUNTER → 2024-03-25 | Outpatient (CLI) | payer MEDICAID, SELFPAY ==
--- NOTE | 2024-03-25 14:39 | BI_ITS ---
MAMMOGRAPHY - BILATERAL SCREENING 3-D TOMOSYNTHESIS REASON FOR EXAM: Female, 58 years old. screening PERTINENT HISTORY: No significant family history. TECHNIQUE: 2-D mammograms and 3-D Tomosynthesis of the breast (s) were performed. CAD was performed. COMPARISON: 03/24/2023 FINDINGS: The breast composition is composed of scattered fibroglandular density. Scattered benign calcifications are seen. No dense spiculated masses or suspicious microcalcifications are identified. No architectural distortion is identified. There is no skin thickening or retraction. There has been no significant change since the prior study. BI/SCRN MAMM (CAD)W/MIREILLE BILAT IMPRESSION: No mammographic signs of malignancy. Routine yearly mammograms recommended. ASSESSMENT CATEGORY: BIRADS Category 1: Negative. A letter regarding these results will be sent to the patient by the facility within 30 days. FOLLOW UP RECOMMENDATION: Yearly follow up mammogram recommended. (A) Approximately 10% of breast cancers are not detected by mammography. A normal mammogram should not delay biopsy of a clinically suspicious abnormality. Electronically Signed: Дмитрий Hudson MD at 20:49 EST ,
[2024-03-29 10:07] LABS: HPV APTIMA, High Risk Negative (Negative)
== END | disposition home or self-care (01) ==
LOC: OPBI 14:39
PROVIDERS: PCP Nurse Practitioner Family; Referring Provider Nurse Practitioner Women's Health; Visit Provider Nurse Practitioner Women's Health
DX: Z12.31 Encounter for screening mammogram for malignant neoplasm of breast (principal); Z12.4 Encounter for screening for malignant neoplasm of cervix
CPT/HCPCS: 77063; 77067; 87624; 88175; G0145

== ENCOUNTER → 2024-10-04 | Outpatient (CLI) | payer MEDICAID, SELFPAY ==
--- NOTE | 2024-10-04 10:30 | BI_ITS ---
EXAM: SCRN MAMM (CAD)W/MIREILLE BILAT DATE: 10/04/2024 CLINICAL HISTORY: F, Age 58 y/o , MAMMOGRAM EVERY 6 MONTHS TECHNIQUE: SCRN MAMM (CAD)W/MIREILLE BILAT COMPARISON: Prior exam(s) dated 03/25/2024, 03/24/2023, 03/17/2022. FINDINGS: TISSUE DENSITY: There are scattered areas of fibroglandular density. Bilateral Breast Mammographic Findings: No significant masses, calcifications or other abnormalities are identified. BI/SCRN MAMM (CAD)W/MIREILLE BILAT IMPRESSION: There is no mammographic evidence of malignancy. OVERALL FINAL ASSESSMENT BI-RADS 1: NEGATIVE. RECOMMENDATION: Routine annual follow-up in 1 Year A letter with findings and recommendations will be mailed to the patient. Reading Location: [id number]
--- OUTSIDE RECORDS SUMMARY | 2024-10-04 19:07 | XMS RPT_ITS | CCD ---
Author Organization [facility] Care Team Providers Care Ic Design Engineer Name Role Phone Laura Zhou LPN Unavailable Unavailab le Laura Zhou LPN Unavailable Unavailab Socorro Guerra Unavailable Sara Diaz Unavailable Socorro Gore Unavailable Laura Zhou LPN Unavailable Unavailab Socorro Guerra Unavailable Socorro Gore N Unavailable Sara Diaz Unavailable STANLEY, CINDY Primary Care Unavailable FALLIS, VERONICA J Referring Unavailable FALLIS, VERONICA J Attending Unavailable STANLEY, CINDY Referring Unavailable STANLEY, CINDY Primary Care Unavailable FALLIS, VERONICA J Attending Unavailable STANLEY, CINDY Primary Care Unavailable FALLALYSSIA, VERONICA J Referring Unavailable FALLIS, VERONICA Marium Attending Unavailable Velvet B[address] FREIGHT, BRAKE COU[address] FREIGHT-C Radha Primary Care Provider Velvet REYEZ, BRAKE COU[address] FREIGHT-C Radha Referring Provider Arlyn REYEZ, BRAKE [address] FREIGHT-C Jacque Attending Provider RODRÍGUEZ ACOSTA Admitting Unavailable RODRÍGUEZ ACOSTA Attending Unavailable RODRÍGUEZ ACOSTA Primary Care Unavailable Velvet [address] FREIGHT, BRAKE COU[address] FREIGHT-C Radha Primary Care Provider Velvet REYEZ, BRAKE [address] FREIGHT-C Radha Referring Provider Arlyn REYEZ, AISSATOU-C Jacque Attending Provider Dr. Baldomero Sen Attending Provider Dr. Toni Saldana Attending Provider Velvet [address] FREIGHT, BRAKE COU[address] FREIGHT-C Radha Primary Care Provider Velvet [address] FREIGHT, BRAKE COU[address] FREIGHT-C Radha Referring Provider Arlyn [address] FREIGHT, BRAKE COU[address] FREIGHT-C Jacque Attending Provider [phone] Velvet, Radha Primary Care Unavailable Arlyn, Jacque Referring Unavailable Arlyn, Jacque Attending Unavailable You, Janet Referring Unavailable Velvet, Radha Primary Care Unavailable You, Janet Attending Unavailable You, Janet Referring Unavailable Velvet, Radha Primary Care Unavailable You, Janet Attending Unavailable You, Janet Referring Unavailable Velvet, Radha Primary Care Unavailable You, Janet Attending Unavailable You, Janet Referring Unavailable Velvet, Radha Primary Care Unavailable You, Janet Attending Unavailable Velvet, Radha Referring Unavailable Velvet, Radha Primary Care Unavailable You, Janet Attending Unavailable Velvet, Radha Primary Care Unavailable Velvet, Radha Referring Unavailable Arlyn, Jacque Attending Unavailable Velvet, Radha Referring Unavailable Velvet, Radha Primary Care Unavailable [place], Jacque Attending Unavailable Velvet, Radha Primary Care Unavailable [place], Jacque Attending Unavailable Arlyn, Jacque Referring Unavailable Velvet, Radha Primary Care Unavailable Arlyn, Jacque Attending Unavailable Arlyn, Jacque Referring Unavailable Velvet, Radha Primary Care Unavailable Marcanthony, Missy Referring Unavailable Marcanthony, Missy Attending Unavailable Velvet, Radha Primary Care Unavailable You, Janet Attending Unavailable You, Janet Referring Unavailable Velvet, Radha Primary Care Unavailable You, Janet Attending Unavailable You, Janet Referring Unavailable Velvet, Radha Primary Care Unavailable You, Janet Attending Unavailable You, Janet Referring Unavailable VELVETRADHA PADILLA DIRECTOR POWER Attending Unavailable RADHA VIVEROS DIRECTOR POWER Admitting Unavailable RADHA VIVEROS DIRECTOR POWER Primary Care Unavailable DENICE MARTE Referring Unavailable RADHA VIVEROS CNP Consulting Unavailable PROVIDER, UNKNOWN Consulting Unavailable PROVIDER, UNKNOWN Consulting Unavailable RADHA VIVEROS DIRECTOR POWER Attending Unavailable RADHA VIVEROS DIRECTOR POWER Admitting Unavailable RADHA VIVEROS DIRECTOR POWER Primary Care Unavailable RADHA VIVEROS DIRECTOR POWER Consulting Unavailable PROVIDER, UNKNOWN Consulting Unavailable PROVIDER, UNKNOWN Consulting Unavailable RADHA VIVEROS DIRECTOR POWER Attending Unavailable RADHA VIVEROS DIRECTOR POWER Admitting Unavailable RADHA VIVEROS DIRECTOR POWER Primary Care Unavailable DENICE MARTE Referring Unavailable RADHA VIVEROS CNP Consulting Unavailable PROVIDER, UNKNOWN Consulting Unavailable PROVIDER, UNKNOWN Consulting Unavailable MISSY DAMON MD Admitting UnavailMISSY Friedman MD Primary Care Unavailab MISSY Ballard MD Attending Unavailab RADHA Das CNP Consulting Unavailable PROVIDER, UNKNOWN Consulting Unavailable PROVIDER, UNKNOWN Consulting Unavailable Allergies Allergy Classification Reported Allergen(s) Allergy Type Date of Onset Reaction(s) Facility (9 sources) Honey bee venom; Translations: [HONEY BEE VENOM] allergy to substance 7 [facility] Work Phone: (1 source) zolpidem Drug Allergy 4 [facility] Repository Medications Current Medications Medication Drug Class(es) Dates Sig (Normalized) Sig (Original) acetaminophen 325 mg oral tablet (4 sources) Start: 01-06-2020 take 1 tablet by mouth once Acetaminophen (Tylenol) 325 mg tablet Active 325 MG PO ONCE January 05, 2020 11:00pm aspirin 325 mg delayed release oral tablet (4 sources) Platelet Aggregation Inhibitor, Nonsteroidal Anti-inflammatory Drug Start: 03-10-2021 take 325 mg by mouth once daily Aspirin Active 325 MG PO DAILY March 10, 2021 12:00am calcium ascorbate 500 mg oral tablet (4 sources) Start: 03-10-2021 take 500 mg by mouth twice daily Ascorbate Calcium (Vitamin C) Active 500 MG PO TWICE A DAY March 10, 2021 12:00am calcium carbonate 1500 mg oral tablet (4 sources) Start: 03-10-2021 take 1 tablet by mouth twice daily Calcium Carbonate (Calcium 600) 600 mg calcium (1,500 mg) tablet Active 600 MG PO TWICE A DAY March 10, 2021 12:00am celecoxib 200 mg oral capsule (2 sources) Nonsteroidal Anti-inflammatory Drug Start: 05-13-2022 take 1 capsule by mouth once daily Celecoxib (Celebrex) 200 mg capsule Active 200 MG PO DAILY May 13, 2022 12:00am cholecalciferol 0.125 mg oral capsule (4 sources) Vitamin D Start: 03-10-2021 take 125 ug by mouth twice daily Cholecalciferol (Vitamin D3) Active 125 MCG PO TWICE A DAY March 10, 2021 12:00am dexamethasone phosphate 4 mg/ml injectable solution (4 sources) Corticosteroid Start: 06-22-2022 End: 06-29-2022 take 4 mg by mouth once daily Dexamethasone Sodium Phosphate Active 4 MG PO DAILY June 29, 2022 12:36pm doxepin hydrochloride 10 mg oral capsule (1 source) Tricyclic Antidepressant Start: 03-23-2023 take 10 mg by mouth once daily Doxepin Active 10 MG PO DAILY March 23, 2023 12:00am gabapentin 300 mg oral capsule (3 sources) Anti-epileptic Agent Start: 03-17-2022 take 300 mg by mouth once daily Gabapentin Active 300 MG PO DAILY March 17, 2022 12:00am Multivitamin preparation (4 sources) Start: 03-10-2021 take 1 tablet by mouth once daily Multivitamin Active 1 TABLET PO DAILY March 10, 2021 12:00am Start: 03-10-2021 take 1 tablet by alisa th once daily Multivitamin Active 1 TABLET PO DAILY March 10, 2021 1:00am Vitamin B Complex (B Complex-Vitamin B12) tablet (2 sources) Start: 05-13-2022 take 1 tablet by mouth once daily Vitamin B Complex (B Complex-Vitamin B12) tablet Active 1 TABLET PO DAILY May 13, 2022 12:00am Start: 05-13-2022 take 1 tablet by alisa th once daily Vitamin B Complex (B Complex-Vitamin B12) tablet Active 1 TABLET PO DAILY May 13, 2022 1:00am Zinc (4 sources) Start: 03-10-2021 take 50 mg by mouth twice daily Zinc Active 50 MG PO TWICE A DAY March 10, 2021 12:00am Start: 03-10-2021 take 50 mg by mouth twice john y Zinc Active 50 MG PO TWICE A DAY March 10, 2021 1:00am Completed/Discontinued Medications Medication Drug Class(es) Dates Sig (Normalized) Sig (Original) amitriptyline hydrochloride 10 mg oral tablet (3 sources) Tricyclic Antidepressant Start: 03-17-2022 End: 05-13-2022 take 10 mg by mouth at bedtime Amitriptyline Discontinued 10 MG PO AT BEDTIME March 17, 2022 12:00am May 13, 2022 11:47am amoxicillin 500 mg oral capsule (4 sources) Penicillin-class Antibacterial Start: 09-06-2018 End: 09-16-2018 take 1000 mg by mouth twice daily Amoxicillin Discontinued 1000 MG PO TWICE A DAY 40 10 September 05, 2018 11:00pm September 15, 2018 11:09pm amoxicillin 875 mg / clavulanate 125 mg oral tablet (4 sources) Penicillin-class Antibacterial Start: 09-20-2018 End: 01-04-2019 take 1 tablet by mouth twice daily Amoxicillin-Pot Clavulanate Discontinued 1 TABLET PO TWICE A DAY September 19, 2018 11:00pm January 04, 2019 12:05pm follow up w/ your family doctor 3-5 days after starting this medication if no improvement calcium carbonate 1500 mg / cholecalciferol 800 unt oral tablet (4 sources) Vitamin D Start: 05-24-2015 End: 09-06-2018 Calcium Carbonate-Vitamin D3 Discontinued 1 EACH PO TWICE A DAY May 24, 2015 12:00am September 06, 2018 11:28am citalopram 20 mg oral tablet (4 sources) Serotonin Reuptake Inhibitor Start: 03-10-2021 End: 05-13-2022 take 20 mg by mouth once daily Citalopram Discontinued 20 MG PO DAILY March 10, 2021 12:00am May 13, 2022 11:48am 24 hr methylphenidate hydrochloride 36 mg extended release oral tablet (3 sources) Central Nervous System Stimulant Start: 03-17-2022 End: 03-23-2023 take 1 tablet by mouth once daily, then take 1 tablet by mouth every twenty-four hours Methylphenidate Hcl (Concerta) 36 mg tablet extended release 24hr Discontinued 36 MG PO DAILY March 17, 2022 12:00am March 23, 2023 3:44pm predniSONE 50 mg oral tablet (13 sources) Corticosteroid Start: 04-04-2016 End: 12-13-2016 PREDNISONE 50 MG TABS one tablet daily PREDNISONE [id number] Miranda Vallecillo Quercetin (3 sources) Start: 03-17-2022 End: 05-13-2022 Quercetin Discontinued MG PO March 17, 2022 12:00am May 13, 2022 11:48am Start: 03-17-2022 End: 05-13-2022 Quercetin Discontinued MG PO March 17, 2022 1:00am May 13, 2022 12:48pm Start: 03-17-2022 Quercetin Acti ve MG PO March 17, 2022 12:00am sertraline 50 mg oral tablet (4 sources) Serotonin Reuptake Inhibitor Start: 05-24-2015 End: 09-06-2018 take 25 mg by mouth once daily Sertraline Discontinued 25 MG PO DAILY May 24, 2015 12:00am September 06, 2018 11:28am Turmeric extract (4 sources) Start: 05-24-2015 End: 09-06-2018 Turmeric (Bulk) Discontinued 500 GM MC TWICE A DAY May 24, 2015 12:00am September 06, 2018 11:28am Start: 05-24-2015 End: 09-06-2018 Turmeric (Bulk) Discontinued 500 GM MC TWICE A DAY May 24, 2015 1:00am September 06, 2018 12:28pm Problems Active Problems Problem Classification Problem Date Documented Date Episodic/Chronic Disorders of lipid metabolism (1 source) Hyperlipidemia, unspecified; Translations: [Hyperlipidemia, unspecified] Onset: 05-30-2024 Chronic Esophageal disorders (1 source) Gastro-esophageal reflux disease without esophagitis; Translations: [Gastro-esophageal reflux disease without esophagitis] Onset: 05-30-2024 Chronic Malaise and fatigue (1 source) Chronic fatigue, unspecified; Translations: [Chronic fatigue, unspecified] Onset: 01-06-2024 Chronic Malaise and fatigue (2 sources) Other fatigue; Translations: [Other fatigue] Onset: 01-06-2024 Episodic Melanomas of skin (1 source) Malignant melanoma of unspecified lower limb, including hip; Translations: [Malignant melanoma of unspecified lower limb, including hip] Onset: 08-28-2024 Chronic Other connective tissue disease (11 sources) Radial styloid tenosynovitis; Translations: [Radial styloid tenosynovitis [de Quervain]] Onset: 04-04-2016 04-04-2016 Episodic Other connective tissue disease (4 sources) Iliotibial band friction syndrome; Translations: [Iliotibial band syndrome, unspecified leg] 10-08-2020 Episodic Other connective tissue disease (2 sources) Radial styloid tenosynovitis [de Quervain]; Translations: [Radial styloid tenosynovitis] 05-13-2022 Episodic Other liver diseases (1 source) Fatty (change of) liver, not elsewhere classified; Translations: [Fatty (change of) liver, not elsewhere classified] Onset: 02-09-2024 Chronic Other nervous system disorders (7 sources) Ulnar neuritis; Translations: [Lesion of ulnar nerve, unspecified upper limb] Onset: 10-18-2016 10-18-2016 Chronic Other non-traumatic joint disorders (9 sources) Pain in wrist; Translations: [Pain in left wrist] Onset: 10-18-2016 10-18-2016 Episodic Other screening for suspected conditions (not mental disorders or infectious disease) (1 source) Abnormal findings on diagnostic imaging of other specified body structures; Translations: [Abnormal findings on diagnostic imaging of other specified body structures] Onset: 02-15-2024 Chronic Spondylosis; intervertebral disc disorders; other back problems (4 sources) Lumbar spondylosis; Translations: [Spondylosis without myelopathy or radiculopathy, lumbar region] 10-08-2020 Chronic Unclassified (3 sources) Adult health examination ; Translations: [Encounter for general adult medical examination without abnormal findings] Onset: 12-16-2016 12-16-2016 Past or Other Problems Problem Classification Problem Date Documented Da te Episodic/Chronic Abdominal pain (1 source) Pelvic and perineal pain; Translations: [Pelvic and perineal pain] Onset: 01-28-2024 Episodic Cardiac dysrhythmias (1 source) Palpitations; Translations: [Palpitations] Onset: 05-30-2024 Episodic Other gastrointestinal disorders (1 source) Abdominal distension (gaseous); Translations: [Abdominal distension (gaseous)] Onset: 02-26-2024 Episodic Other screening for suspected conditions (not mental disorders or infectious disease) (4 sources) Encounter for screening mammogram for malignant neoplasm of breast; Translations: [Encounter for screening for malignant neoplasm of cervix] Onset: 03-25-2024 Episodic Unclassified (4 sources) chronic limes disease 10-16-2021 Results Test Name Value Interpretation Reference Range Facility LYME AB PANEL WBLOT [CCL]on 09-24-2024 LYME AB PANEL WBLOT [CCL] Normal [facility] Comment on above: Result Comment: ly _ LYME AB PANEL WBLOT [CCL]_ SEE SCANNED REPORT Performed By: #### 2 [id number] #### [facility],[address] [place] [address] RESULT CRITICAL? NO Normal [facility] Comment on above: Performed By: #### 2 43577 #### [facility],[address] [place] [address]755 EBV AB TO VIRAL CAPSID ATIGE N,IgM [CCL]on 09-23-2024 EBV VCA IgM, Qual Negative Normal Negative [facility] Comment on above: Result Comment: No s erological evidence of recent EBV infection. [address] [place] [address] Mukesh Carr III, M.D. [id number] Performed By: #### 2 [id number] #### [facility],[address] [place] [address] LYME EARLY (SIGNS/SYMP <=30 DAYS) [CCL]on 09-23-2024 RESULT CRITICAL? NO Normal [facility] Comment on above: Performed By: #### 2 76544 #### [facility],[address] [place] [address] Lyme Antibodies, Screen Negative Normal Negative [facility] Comment on above: Result Comment: Rece nt infection with B. burgdorferi sensu lato cannot be excluded if the specimen collected within four weeks after the onset of signs and symptoms or within six weeks after a known tick exposure. Clinical and epidemiological correlation is required. [address] [place] [address] Mukesh Carr III, M.D. [id number] Performed By: #### 2 86558 #### [facility],[address] [place] [address] B. burgdorferi IgG and IgM p alexander (S)on 09-21-2024 B. burgdorferi IgG+IgM Qn (S) Negative Normal Negative [facility] Comment on above: Order Comment: Speci men Type: BLOOD SPECIMEN Ordering Facility: [facility] Address: [address] [place] [address] Result Comment: Rece nt infection with B. burgdorferi sensu lato cannot be excluded if the specimen collected within four weeks after the onset of signs and symptoms or within six weeks after a known tick exposure. Clinical and epidemiological correlation is required. Performed By: #### 1 8203-0, 84074-9, 86-5 #### [facility] CLIA [id number] [facility] [address] [place] B. burgdorferi IgG+IgM IB Ql (S)on 09-21-2024 B. burgdorferi Ab band pattern IB (S) [Interp] No evidence of antibodies to Borrelia burgdorferi. Normal [facility] Comment on above: Order Comment: [facility] Type: BLOOD SPECIMEN Ordering Facility: [facility] Address: [address] [place] [address] Performed By: #### 1 8203-0, 80154-4, 7885-5 #### [facility] CLIA [id number] [address] [place] [address] [place] B. burgdorferi IgG band pattern IB (S) [Interp] No Bands Seen Normal [facility] Comment on above: Order Comment: [facility] Type: BLOOD SPECIMEN Ordering Facility: [facility] Address: [address] [place] [address] Performed By: #### 1 8203-0, 44184-1, 7885-5 #### [facility] CLIA [id number] [address] [place] [address] [place] B. burgdorferi IgG IB Ql (S) Negative Normal Negative [facility] Comment on above: Order Comment: [facility] Type: BLOOD SPECIMEN Ordering Facility: [facility] Address: [address] [place] [address] Result Comment: CDC criteria for a positive Western blot are the presence of >=5 bands for IgG. Performed By: #### 1 8203-0, 76665-0, 7885-5 #### [facility] CLIA [id number] [facility] [address] [address] [place] B. burgdorferi IgM band pattern IB (S) [Interp] No Bands Seen Normal [facility] Comment on above: Order Comment: Speci ailyn Type: BLOOD SPECIMEN Ordering Facility: [facility] Address: [address] [place] [address] Performed By: #### 1 8203-0, 92155-6, 7886-5 #### [facility] CLIA [id number] [address] [place] B. burgdorferi IgM IB Ql (S) Negative Normal Negative [facility] Comment on above: Order Comment: Speci men Type: BLOOD SPECIMEN Ordering Facility: [facility] Address: [address] [place] [address] Result Comment: CDC criteria for a positive Western Blot are the presence of >=2 bands for IgM. Performed By: #### 1 8203-0, 82379-7, 7886-5 #### [facility] CLIA [id number] [address] [place] [address] [place] CBC + DIFFon 09-21-2024 Baso # 0.01 x10EE3/UL Normal 0.00 - 0.10 [facility] Comment on above: Performed By: #### 2 89214 #### [facility],[address] [place] [address] Basophils/100 WBC (Bld) 0.1 % Normal 0.0 - 2.0 [facility] Comment on above: Performed By: #### 2 90974 #### [facility],[address] [place] [address] CBC + DIFF Normal [facility] Comment on above: Result Comment: CBC- COMPLETE BLOOD COUNT Performed By: #### 2 89032 #### [facility],[address] [place] [address] EO # 0.13 x10EE3/UL Normal 0.00 - 0.50 [facility] Comment on above: Performed By: #### 2 70269 #### [facility],[address] [place] [address] Eosinophils/100 WBC (Bld) 2.3 % Normal 0.0 - 7.0 [facility] Comment on above: Performed By: #### 2 56024 #### [facility],[address] [place] [address] Erythrocyte distribution width (RBC) [Ratio] 12.6 % Normal 12.0 - 15.6 [facility] Comment on above: Performed By: #### 2 05872 #### [facility],[address] [place] [address] Hematocrit (Bld) [Volume fraction] 42.6 % Normal 34.0 - 46.0 [facility] Comment on above: Performed By: #### 2 04779 #### [facility],[address] [place] [address] Hemoglobin (Bld) [Mass/Vol] 14.7 g/dL Normal 12.0 - 16.0 [facility] Comment on above: Performed By: #### 2 93190 #### [facility],[address] [place] [address] Lymph # 2.43 x10EE3/UL Normal 0.80 - 2.80 [facility] Comment on above: Performed By: #### 2 23854 #### [facility],[address] [place], [place] [address] Lymphocytes/100 WBC (Bld) 43.6 % Normal 20.0 - 45.0 [facility] Comment on above: Performed By: #### 2 41588 #### [facility],[address] [place] [address] MANUAL DIFF N/A Normal [facility] Comment on above: Performed By: #### 2 00287 #### [facility],[address] [place] [address]885 MCH (RBC) [Entitic mass] 31 pg Normal 27 - 33 [facility] Comment on above: Performed By: #### 2 03536 #### [facility],[address] [place] [address] MCHC 35 X10 3 Normal 32 - 36 [facility] Comment on above: Performed By: #### 2 50634 #### [facility],[address] [place] [address] MCV (RBC) [Entitic vol] 90 fL Normal 80 - 99 [facility] Comment on above: Performed By: #### 2 93749 #### [facility],[address] [place] [address] [place] # 0.33 x10EE3/UL Normal 0.20 - 1.00 [facility] Comment on above: Performed By: #### 2 91538 #### [facility],[address] [place] [address] MONOS % 6.0 % Normal 0.0 - 10.0 [facility] Comment on above: Performed By: #### 2 39780 #### [facility],[address] [place] [address] Morphology Farhad (Bld) [Interp] N/A Normal [facility] Comment on above: Performed By: #### 2 10906 #### [facility],[address] [place] [address] Neut # 2.68 x10EE3/UL Normal 1.50 - 7.10 [facility] Comment on above: Performed By: #### 2 23481 #### [facility],[address] [place] [address] Neutrophils/100 WBC (Bld) 48.1 % Normal 46.0 - 76.0 [facility] Comment on above: Performed By: #### 2 53897 #### [facility],[address] [place] [address] PLATELET 285 x10EE3/UL Normal 150 - 450 [facility] Comment on above: Performed By: #### 2 31204 #### [facility],[address] [place] [address] Platelet mean volume (Bld) [Entitic vol] 8.2 fL Normal 6.6 - 10.5 [facility] Comment on above: Result Comment: AUTO MATED DIFFERENTIAL Performed By: #### 2 46605 #### [facility],[address] [place] [address] RBC 4.74 x 10EE6/UL Normal 4.10 - 5.30 [facility] Comment on above: Performed By: #### 2 02728 #### [facility],[address] [place] [address]92 WBC 5.6 x 10EE3/UL Normal 4.5 - 10.8 [facility] Comment on above: Performed By: #### 2 22723 #### [facility],[address] [place] [address] 89569 EBV capsid IgM Qn (S)on 08-26 EBV VCA IGM, QUAL Negative Normal [facility] Comment on above: Order Comment: Speci men Type: BLOOD SPECIMEN Ordering Facility: [facility] Address: [address] [place] [address] Result Comment: No s erological evidence of recent EBV infection. Performed By: #### 1 8203-0, 39293-6, 7886-5 #### [facility] CLIA [id number] [address] [place] [address] [place] [facility] T4-FREE (FREE THYROXINE)on 0 09-21-2024 Free T4 [Mass/Vol] 0.80 ng/dL Normal 0.76 - 1.46 [facility] Comment on above: Result Comment: P otential of falsely elevated results when biotin concentrations are > 10 ng/mL. Performed By: #### 2 61891 #### [facility],[address] [place] [address]381 TSHon 09-21-2024 TSH Qn 2.53 m[IU]/L Normal 0.35 - 3.74 [facility] Comment on above: Performed By: #### 2 60624 #### [facility],[address] [place] [address] 11825 TRYPTASE [CCL]on 05-31-2024 Tryptase 8.1 ug/L Normal <8.4 [facility] Comment on above: Result Comment: [facility] [address] [place] [address] Mukesh Carr III, M.D. [id number] Performed By: #### 2 28310 #### [facility],[address] [place] [address] 98550 CBC + DIFFon 05-30-2024 Baso # 0.02 x10EE3/UL Normal 0.00 - 0.10 [facility] Comment on above: Performed By: #### 2 87364 #### [facility],[address] [place] [address] 88116 Basophils/100 WBC (Bld) 0.3 % Normal 0.0 - 2.0 [facility] Comment on above: Performed By: #### 2 67361 #### [facility],[address] [place] [address] 85395 CBC + DIFF Normal [facility] Comment on above: Result Comment: CBC- COMPLETE BLOOD COUNT Performed By: #### 2 68817 #### [facility],[address] [place] [address] 13944 EO # 0.19 x10EE3/UL Normal 0.00 - 0.50 [facility] Comment on above: Performed By: #### 2 43358 #### [facility],[address] [place] [address] 46895 Eosinophils/100 WBC (Bld) 3.3 % Normal 0.0 - 7.0 [facility] Comment on above: Performed By: #### 2 02200 #### [facility],[address] [place] [address] 55846 Erythrocyte distribution width (RBC) [Ratio] 12.7 % Normal 12.0 - 15.6 [facility] Comment on above: Performed By: #### 2 83846 #### [facility],[address] [place], [place] [address] Hematocrit (Bld) [Volume fraction] 44.8 % Normal 34.0 - 46.0 [facility] Comment on above: Performed By: #### 2 55424 #### [facility],[address] [place] [address] Hemoglobin (Bld) [Mass/Vol] 15.3 g/dL Normal 12.0 - 16.0 [facility] Comment on above: Performed By: #### 2 90454 #### [facility],[address] [place] [address] Lymph # 1.94 x10EE3/UL Normal 0.80 - 2.80 [facility] Comment on above: Performed By: #### 2 20720 #### [facility],[address] [place], [place] [address] Lymphocytes/100 WBC (Bld) 33.8 % Normal 20.0 - 45.0 [facility] Comment on above: Performed By: #### 2 11722 #### [facility],[address] [place], [place] [address] MANUAL DIFF N/A Normal [facility] Comment on above: Performed By: #### 2 97554 #### [facility],[address] [place], [place] [address] MCH (RBC) [Entitic mass] 31 pg Normal 27 - 33 [facility] Comment on above: Performed By: #### 2 15042 #### [address] [address] MCHC 34 X10 3 Normal 32 - 36 [facility] Comment on above: Performed By: #### 2 55421 #### [facility],[address] [place], [place] [address] MCV (RBC) [Entitic vol] 91 fL Normal 80 - 99 [facility] Comment on above: Performed By: #### 2 10468 #### [facility],[address] [place] [address] [place] # 0.33 x10EE3/UL Normal 0.20 - 1.00 [facility] Comment on above: Performed By: #### 2 49526 #### [facility],[address] [place] [address] MONOS % 5.7 % Normal 0.0 - 10.0 [facility] Comment on above: Performed By: #### 2 20744 #### [facility],[address] [place] [address] Morphology Farhad (Bld) [Interp] N/A Normal [facility] Comment on above: Performed By: #### 2 42776 #### [facility],[address] [place] [address] Neut # 3.25 x10EE3/UL Normal 1.50 - 7.10 [facility] Comment on above: Performed By: #### 2 51208 #### [place] [address] Neutrophils/100 WBC (Bld) 56.8 % Normal 46.0 - 76.0 [facility] Comment on above: Performed By: #### 2 08926 #### [facility],[address] [place] [address] PLATELET 289 x10EE3/UL Normal 150 - 450 [facility] Comment on above: Performed By: #### 2 91460 #### [facility],[address] [place] [address] Platelet mean volume (Bld) [Entitic vol] 8.3 fL Normal 6.6 - 10.5 [facility] Comment on above: Result Comment: AUTO MATED DIFFERENTIAL Performed By: #### 2 96854 #### [place] [address] RBC 4.92 x 10EE6/UL Normal 4.10 - 5.30 [facility] Comment on above: Performed By: #### 2 89806 #### [facility],[address] [place] [address] 98754 WBC 5.7 x 10EE3/UL Normal 4.5 - 10.8 [facility] Comment on above: Performed By: #### 2 18299 #### [facility],[address] [place] [address] 39194 CMP with eGFRon 05-30-2024 AGE 58 years Normal [facility] Comment on above: Performed By: #### 2 74147 #### [facility],[address] [place] [address] 98414 Albumin [Mass/Vol] 4.2 g/dL Normal 3.4 - 5.0 [facility] Comment on above: Performed By: #### 2 77173 #### [facility],[address] [place] [address] 28288 Albumin/Globulin [Mass ratio] 1.2 {ratio} Normal 0.9 - 1.6 [facility] Comment on above: Performed By: #### 2 86087 #### [facility],[address] [place] [address] 43628 ALK PHOS 117 U/L High 46 - 116 [facility] Comment on above: Performed By: #### 2 94412 #### [facility],[address] [place] [address] 01992 ALT [Catalytic activity/Vol] 48 U/L Normal 16 - 63 [facility] Comment on above: Performed By: #### 2 45643 #### [facility],[address] [place] [address] 89515 Anion gap [Moles/Vol] 13 mmol/L Normal 10 - 20 [facility] Comment on above: Performed By: #### 2 74637 #### [facility],[address] [place] [address] 72249 AST [Catalytic activity/Vol] 29 U/L Normal 13 - 39 [facility] Comment on above: Performed By: #### 2 32485 #### [facility],[address] [place] [address] 79810 B/C RATIO 12 ratio Normal 0 - 30 [facility] Comment on above: Performed By: #### 2 25751 #### [facility],[address] [place] [address] 23970 Bilirubin [Mass/Vol] 0.6 mg/dL Normal 0.2 - 1.0 [facility] Comment on above: Performed By: #### 2 79646 #### [facility],[address] [place] [address] 85987 Calcium [Mass/Vol] 10.1 mg/dL Normal 8.5 - 10.1 [facility] Comment on above: Performed By: #### 2 17149 #### [facility],[address] [place] [address] 90124 Chloride [Moles/Vol] 104 mmol/L Normal 98 - 107 [facility] Comment on above: Performed By: #### 2 76479 #### [facility],[address] [place] [address] 42959 CMP with eGFR Normal [facility] Comment on above: Result Comment: COMP REHENSIVE METABOLIC PANEL Performed By: #### 2 11301 #### [facility],[address] [place] [address] 95764 CO2 [Moles/Vol] 30.2 mmol/L Normal 21.0 - 32.0 [facility] Comment on above: Performed By: #### 2 65708 #### [facility],[address] [place] [address] 33652 Creatinine [Mass/Vol] 0.89 mg/dL Normal 0.55 - 1.02 [facility] Comment on above: Performed By: #### 2 19022 #### [facility],[address] [place] [address] 32134 GFR/1.73 sq M.predicted among non-blacks MDRD (S/P/Bld) [Vol rate/Area] mL/min/{1.73_m2} Normal 60 - 999 [facility] Comment on above: Performed By: #### 2 99003 #### [facility],[address] [place] [address] Result Comment: ACCO RDING TO THE NATIONAL KIDNEY DISEASE EDUCATION PROGRAM(NKDE), A NORMAL eGFR IS A VALUE GREATER THAN OR EQUAL TO 60 ML/MIN/1.73 SQ METERS. CHRONIC KIDNEY DISEASE: <60mL/MIN/1.73 SQ METERS KIDNEY FAILURE: <15mL/MIN/1.73 SQ METERS THIS TEST SHOULD ONLY BE USED FOR PATIENTS 18 YEARS OF AGE AND OLDER. Globulin (S) [Mass/Vol] 3.6 g/dL Normal 1.5 - 3.8 [facility] Comment on above: Performed By: #### 2 92012 #### [facility],[address] [place] [address] 87286 Glucose [Mass/Vol] 79 mg/dL Normal 74 - 106 [facility] Comment on above: Performed By: #### 2 90251 #### [facility],[address] [place] [address] 76073 Potassium [Moles/Vol] 3.9 mmol/L Normal 3.5 - 5.1 [facility] Comment on above: Performed By: #### 2 62964 #### [facility],[address] [place] [address] 46532 Protein [Mass/Vol] 7.8 g/dL Normal 6.4 - 8.2 [facility] Comment on above: Performed By: #### 2 63711 #### [facility],[address] [place] [address] 05550 Sodium [Moles/Vol] 143 mmol/L Normal 136 - 145 [facility] Comment on above: Performed By: #### 2 48504 #### [facility],[address] [place] [address] 31390 Urea nitrogen [Mass/Vol] 11 mg/dL Normal 7 - 18 [facility] Comment on above: Performed By: #### 2 09748 #### [facility],[address] [place] [address] 84944 Honey bee IgE Qnon Honey bee IgE Qn (S) 8.67 kU/l High <0.35 [facility] Comment on above: Order Comment: Speci men Type: BLOOD SPECIMEN Ordering Facility: [facility] Address: [address] [place] [address] Performed By: #### 6 844-5, 6198-6, 6280-2, 6288-5, TRYPT, 6740-5 #### [facility] CLIA [id number] [address] [place] [address] [place] Honey bee IgE Qn (S)on 05-30 Honey bee IgE RAST class (S) Class 3 Abnormal Class 0 [facility] Comment on above: Order Comment: Speci men Type: BLOOD SPECIMEN Ordering Facility: [facility] Address: [address] [place] [address] Performed By: #### 6 844-5, 6198-6, 6280-2, 6288-5, TRYPT, 6740-5 #### [facility] CLIA [id number] [address] [place] [address] [place] LIPID PROFILEon 05-30-2024 Cholesterol [Mass/Vol] 233 mg/dL Normal 0 - 240 [facility] Comment on above: Performed By: #### 2 31809 #### [facility],[address] [place] [address] 34365 Cholesterol in HDL [Mass/Vol] 83 mg/dL High 40 - 60 [facility] Comment on above: Performed By: #### 2 51586 #### [facility],[address] [place] [address] 58531 Cholesterol in LDL [Mass/Vol] 129 mg/dL Normal 0 - 129 [facility] Comment on above: Performed By: #### 2 64584 #### [facility],[address] [place] [address] 48911 Cholesterol.total/C holesterol in HDL [Mass ratio] 2.8 {ratio} Normal 0.0 - 5.0 [facility] Comment on above: Performed By: #### 2 68375 #### [facility],[address] [place] [address] [place] [address] Lipid 1996 panel Normal [facility] Comment on above: Result Comment: LIPI D PROFILE Performed By: #### 2 57315 #### [facility],[address] [place] [address] 51712 Triglyceride [Mass/Vol] 106 mg/dL Normal 0 - 150 [facility] Comment on above: Performed By: #### 2 31037 #### [facility],[address] [place] [address] 80587 Paper Wasp IgE Qnon 05-31-19 Paper wasp IgE Qn (S) <0.35 Normal <0.35 [facility] Comment on above: Order Comment: Speci men Type: BLOOD SPECIMEN Ordering Facility: [facility] Address: [address] [place] [address] Performed By: #### 6 844-5, 6198-6, 6280-2, 6288-5, TRYPT, 40-5 #### [facility] CLIA [id number] [address] [place] [address] [place] Paper wasp IgE Qn (S)on Paper wasp IgE RAST class (S) Class 0 Normal Class 0 [facility] Comment on above: Order Comment: Speci men Type: BLOOD SPECIMEN Ordering Facility: [facility] Address: [address] [place] [address] Performed By: #### 6 844-5, 6198-6, 6280-2, 6288-5, TRYPT, 6740-5 #### [facility] CLIA [id number] [address] [place] [address] [place] T4-FREE (FREE THYROXINE)on 0 05-30-2024 Free T4 [Mass/Vol] 0.88 ng/dL Normal 0.76 - 1.46 [facility] Comment on above: Result Comment: P otential of falsely elevated results when biotin concentrations are > 10 ng/mL. Performed By: #### 2 21165 #### [facility],[address] [place] [address] 32228 TRYPTASE BLOODon 05-30-2024 Tryptase [Mass/Vol] 8.1 ug/L Normal <8.4 [facility] Comment on above: Order Comment: Speci men Type: BLOOD SPECIMEN Ordering Facility: [facility] Address: [address] [place] [address] Performed By: #### 6 844-5, 6198-6, 6280-2, 6288-5, TRYPT, 40-5 #### [facility] CLIA [id number] [address] [place] [address] [place] TSHon 05-30-2024 TSH Qn 1.66 m[IU]/L Normal 0.35 - 3.74 [facility] Comment on above: Performed By: #### 2 53435 #### [facility],[address] [place] [address] 41896 Whitefaced Hornet IgE Qnon 0 05-30-2024 Whitefaced Hornet IgE Qn (S) <0.35 Normal <0.35 [facility] Comment on above: Order Comment: Speci men Type: BLOOD SPECIMEN Ordering Facility: [facility] Address: [address] [place] [address] Performed By: #### 6 844-5, 6198-6, 6280-2, 6288-5, TRYPT, 6740-5 #### [facility] CLIA [id number] [address] [place] [address] [place] Whitefaced Hornet IgE Qn (S) on 05-30-2024 Whitefaced Hornet IgE RAST class (S) Class 0 Normal Class 0 [facility] Comment on above: Order Comment: Speci men Type: BLOOD SPECIMEN Ordering Facility: [facility] Address: [address] [place] [address] Performed By: #### 6 844-5, 6198-6, 6280-2, 6288-5, TRYPT, 6740-5 #### [facility] CLIA [id number] [address] [place], [place] [address] [place] Yellow Hornet IgE Qnon 05-30 Yellow Hornet IgE Qn (S) <0.35 Normal <0.35 [facility] Comment on above: Order Comment: Speci men Type: BLOOD SPECIMEN Ordering Facility: [facility] Address: [address] [place] [address] Performed By: #### 6 844-5, 6198-6, 6280-2, 6288-5, TRYPT, 6740-5 #### [facility] CLIA [id number] [address] [place] [address] [place] [address] [place] Yellow Hornet IgE Qn (S)on 0 05-30-2024 Yellow Hornet IgE RAST class (S) Class 0 Normal Class 0 [facility] Comment on above: Order Comment: Speci men Type: BLOOD SPECIMEN Ordering Facility: [facility] Address: [address] [place] [address] Performed By: #### 6 844-5, 6198-6, 6280-2, 6288-5, TRYPT, 6740-5 #### [facility] CLIA [id number] [address] [place], [place] [address] [place] Yellow Jacket IgE Qnon 05-30 Yellow Jacket IgE Qn (S) <0.35 Normal <0.35 [facility] Comment on above: Order Comment: Speci men Type: BLOOD SPECIMEN Ordering Facility: [facility] Address: [address] [place] [address] Performed By: #### 6 844-5, 6198-6, 6280-2, 6288-5, TRYPT, 6740-5 #### [facility] CLIA [id number] [address] [address] [place] Yellow Jacket IgE Qn (S)on 0 05-30-2024 Yellow Jacket IgE RAST class (S) Class 0 Normal Class 0 [facility] Comment on above: Order Comment: Speci men Type: BLOOD SPECIMEN Ordering Facility: [facility] Address: [address] [place] [address] Performed By: #### 6 844-5, 6198-6, 6280-2, 6288-5, TRYPT, 6740-5 #### [facility] CLIA [id number] [facility] [place] [address] [place] PAP IG HPV APTIMA 16/18,45on 03-29-2024 ADEQ Comment Normal . [facility] Comment on above: Order Comment: Speci men Comment: [id number] Comment: Source.............CervixSpecimen Comment: Other..............Post MenopausalSpecimen Comment: No. of containers..01 ThinPrep Vial Result Comment: Sati sfactory for evaluation. Endocervical component may not be distinguished in cases of atrophy. Performed By: #### L 7400.0280 ####[facility] [address] [place], [address] COMM . Normal . [facility] Comment on above: Order Comment: Speci men Comment: [id number] Comment: Source.............CervixSpecimen Comment: Other..............Post MenopausalSpecimen Comment: No. of containers..01 ThinPrep Vial Performed By: #### L 7400.0280 ####[facility] [address] [place], [place], [id number] COMMENT Comment Normal . [facility] Comment on above: Order Comment: Speci men Comment: [id number] Comment: Source.............CervixSpecimen Comment: Other..............Post MenopausalSpecimen Comment: No. of containers..01 ThinPrep Vial Result Comment: This liquid based ThinPrep(R) pap test was screened with the use of an image guided system. Performed By: #### L 7400.0280 ####[facility] [address] [place], [place], [id number] DIAG Comment Normal . [facility] Comment on above: Order Comment: Speci men Comment: [id number] Comment: Source.............CervixSpecimen Comment: Other..............Post MenopausalSpecimen Comment: No. of containers..01 ThinPrep Vial Result Comment: NEGA TIVE FOR INTRAEPITHELIAL LESION OR MALIGNANCY. CELLULAR CHANGES ASSOCIATED WITH ATROPHY ARE PRESENT. Performed By: #### L 7400.0280 ####[facility] [address] [place], [place], [address] HPV APTIMA, HR Negative Normal Negative [facility] Comment on above: Order Comment: Speci men Comment: [id number] Comment: Source.............CervixSpecimen Comment: Other..............Post MenopausalSpecimen Comment: No. of containers..01 ThinPrep Vial Result Comment: This nucleic acid amplification test detects fourteen high- risk HPV types (16,18,31,33,35,39,45,51,52,56,58,59,66,68) without differentiation. Performed By: #### L 7400.0280 ####[facility] [address] [place], [address] HPV Vicenta Rfx Comment Normal . [facility] Comment on above: Order Comment: Speci men Comment: [id number] Comment: Source.............CervixSpecimen Comment: Other..............Post MenopausalSpecimen Comment: No. of containers..01 ThinPrep Vial Result Comment: Crit eria not met, HPV Genotype not performed. Performed at: - [facility] [id number] Manager Utility: Nga Goldman MD, Phone: [phone] Performed at: =G - [facility] [id number] Manager Utility: Nga Goldman MD, Phone: [phone] Performed By: #### L 7400.0280 ####[facility] [address] [place], [address] PAPSMR Comment Normal . [facility] Comment on above: Order Comment: Speci men Comment: [id number] Comment: Source.............CervixSpecimen Comment: Other..............Post MenopausalSpecimen Comment: No. of containers..01 ThinPrep Vial Result Comment: The Pap smear is a screening test designed to aid in the detection of premalignant and malignant conditions of the uterine cervix. It is not a diagnostic procedure and should not be used as the sole means of detecting cervical cancer. Both false-positive and false-negative reports do occur. Performed By: #### L 7400.0280 ####[facility] [address] [place], [place], [id number] PERFORM Comment Normal . [facility] Comment on above: Order Comment: Speci men Comment: [id number] Comment: Source.............CervixSpecimen Comment: Other..............Post MenopausalSpecimen Comment: No. of containers..01 ThinPrep Vial Result Comment: Haider Roe, Oven Equipment Repairer (ASCP) Performed By: #### L 7400.0280 ####[facility] [address] 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: No Is patient in pain?: No Allergies zolpidem (From Ambien) Allergy (Verified 03/25/24 15:24) Other Medications ???Medication ???Instructions ???Recorded ???Confirmed ???Type multivitamin 1 tab PO DAILY 03/10/21 03/25/24 History gabapentin 300 mg capsule 300 mg PO DAILY 03/17/22 03/25/24 History doxepin 10 mg capsule 10 mg PO DAILY 03/23/23 03/25/24 History cetirizine 10 mg capsule (All Day 10 mg PO QDAY PRN 12/26/23 03/25/24 History Allergy (cetirizine)) fluticasone propionate 50 1 spray intranasal QDAY 12/26/23 03/25/24 History mcg/actuation nasal spray,suspension (Allergy Relief (fluticasone)) montelukast 10 mg tablet 10 mg PO QDAY 12/26/23 03/25/24 History (Singulair) pantoprazole 20 mg tablet,delayed 20 mg PO QDAY 12/26/23 03/25/24 History release ezetimibe 10 mg tablet 10 mg PO QHS 12/28/23 03/25/24 History duloxetine 20 mg capsule,delayed 20 mg PO QDAY #30 caps 01/18/24 03/25/24 Rx release famotidine 40 mg tablet 40 mg PO QHS #30 tabs 01/23/24 03/25/24 Rx Is last menstrual period known: No Post menopausal: Yes Patient : No : No [facility] Medical History Factor V Leiden mutation Mild cervical dysplasia, histologically confirmed chronic limes disease Hay fever Shortness of breath Surgical History History of tubal ligation Social History Smoking Status: Never smoker alcohol intake: never substance use type: does not use what type of physical activity do you participate in: none seatbelt use: always do you feel safe at home: Yes 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 History 3 Elective abortions Hx Para 3 Spontaneous abortions Hx # Term Pregnancies 3 Ectopic pregnancies Hx # Pregnancies Multiple births # of living children 3 HPI Encounter for routine gynecological examination Details: KUMAR DANIELLE is a 58 year old who presents for annual exam. Denies concerns Last PAP: 2019 History of abnormal PAP: no Last mammogram: today pending History of abnormal mammogram: no Colon cancer screening: <10 yr Other preventative health care screenings: Velvet Female Reproductive History Questions: metorrhagia: No and sexually active: No Menopausal Treatment: No HRT, No Vaginal Estrogen, No Osphena, No OTC treatments and No prescription non-hormonal treatment ROS Const Constitutional: Denies fatigue, weight gain or weight loss Cardio Card: Denies chest pain Resp Resp: Denies cough or dyspnea on exertion GI GI: Denies abdominal pain, bloating, change in stool character, constipation or vomiting : Reports as per HPI; Denies difficulty voiding, pelvic pain, urinary frequency, urinary incontinence, urinary urgency, vaginal discharge or vaginal pruritus Exam Const General: cooperative, healthy appearing, no acute distress and well developed Orientation: alert, oriented to person and oriented to place [facility] Head: normal to inspection Neck Neck: normal visual inspection Thyroid: thyroid normal Lymphatic: no lymphadenopathy noted Chest Breast inspection: normal inspection of the breasts and normal inspection of the axillae Breast palpation: normal palpation of the breasts, normal palpation of the axillae and no axillary lymphadenopathy Resp Effort Inspection: normal respiratory effort GI Palpation: soft, no masses and nontender Rectal Exam: deferred External Female Exam: normal external appearance and normal appearance of the urethra Urethra: normal appearance of the urethra and normal palpation Speculum Exam - Vagina: normal appearance of the vagina and normal vaginal discharge Speculum Exam - Cervix: normal appearance of the cervix Bimanual Exam- Vagina Uterus: normal bimanual exam, uterine size normal, uterine shape normal and non-tender Bimanual Exam- Adnexa, other: normal adnexae, no masses, normal and non-tender Pelvic Support: normal Neuro General: patient alert and patient oriented x3 Psych Affect: normal affect Coding Level of Care Code (more content not included)... Normal [facility] SCRN MAMM (CAD)W/MIREILLE BILATo n 03-25-2024 SCRN MAMM (CAD)W/MIREILLE BILAT [facility] Imaging Services [address] [place] [address] SCRN MAMM (CAD)W/MIREILLE BILAT MR#: [id number] Acct: [id number] Name: KUMAR DANIELLE STACY Rep #: [id number] : 1965 F 58 From: Дмитрий Hudson MD PCP: Radha Viveros NP-Lenny Status: REG [facility] Study: SCRN MAMM (CAD)W/MIREILLE BILAT Date of Exam: 02/26 Exam# [id number] Ordering Dr: Jacque Stoddard NP [address] [place] -[place] [id number] MAMMOGRAPHY - BILATERAL SCREENING 3-D TOMOSYNTHESIS REASON FOR EXAM: Female, 58 years old. screening PERTINENT HISTORY: No significant family history. TECHNIQUE: 2-D mammograms and 3-D Tomosynthesis of the breast (s) were performed. CAD was performed. COMPARISON: 03/24/2023 FINDINGS: The breast composition is composed of scattered fibroglandular density. Scattered benign calcifications are seen. No dense spiculated masses or suspicious microcalcifications are identified. No architectural distortion is identified. There is no skin thickening or retraction. There has been no significant change since the prior study. BI/SCRN MAMM (CAD)W/MIREILLE BILAT IMPRESSION: No mammographic signs of malignancy. Routine yearly mammograms recommended. ASSESSMENT CATEGORY: BIRADS Category 1: Negative. A letter regarding these results will be sent to the patient by the facility within 30 days. FOLLOW UP RECOMMENDATION: Yearly follow up mammogram recommended. (A) Approximately 10% of breast cancers are not detected by mammography. A normal mammogram should not delay biopsy of a clinically suspicious abnormality. Electronically Signed: Дмитрий Hudson MD at 20:49 EST , CC: BARB Viveros; BARB Stoddard Digital Data Analyst: Signed Normal [facility] Gastric Emptying Studyon Gastric Emptying Study [facility] Imaging Services [address] [place] [address] Gastric Emptying Study MR#: [id number] Acct: [id number] Name: KUMAR DANIELLE STACY Rep #: [id number] : 1965 F 58 From: Дмитрий Whalen PCP: BARB Rodriguez Status: REG CLI Study: Gastric Emptying Study Date of Exam: 02/12/24 Exam# [id number] Ordering Dr: Janet You [id number] CLINICAL: 58-year-old female with history of early satiety. SEMI-SOLID PHASE 99m Tc SULFUR COLLOID GASTRIC EMPTYING STUDY COMPARISON: CT of the abdomen-pelvis report 02/02/2024 FINDINGS: The patient was administered 1.1 mCi of 99m Tc sulfur colloid mixed with oatmeal and consumed per os. Image acquisitions in the anterior-posterior projections were obtained for 60 minutes. There is prompt visualization of the stomach. There is no gastroesophageal reflux identified. First order kinetics are maintained throughout the duration of the acquisitions. The T ? linear fit was calculated to be 66 minutes, (Normal: 12-56 minutes). NM/Gastric Emptying Study IMPRESSION: 1. ABNORMAL 99m Tc sulfur colloid semi-solid phase (oatmeal) gastric emptying imaging examination. A. There is delayed semi-solid phase gastric emptying compared to normal controls with maintained first order kinetics throughout all components of the examination. (Ramsey et al, J Nucl Med Tech 38: 186, 2010). Electronically Signed: Дмитрий Jason DO at 10:15 EST , CC: BARB Viveros; BARB You Digital Data Analyst: Signed Normal [facility] Abdomen/Pelvis WITH Contrast on 02-02-2024 Abdomen/Pelvis WITH Contrast [facility] Imaging Services [address] [place] [address] Abdomen/Pelvis WITH Contrast MR#: [id number] Acct: [id number] Name: KUMAR DANIELLE Rep #: [id number] : 1965 F 58 From: Colleen Hidalgo PCP: BARB Rodriguez Status: REG CLI Study: Abdomen/Pelvis WITH Contrast Date of Exam: 11/17 Exam# [id number] Ordering Dr: Missy Damon [id number] STUDY: CT ABDOMEN AND PELVIS WITH CONTRAST - URINARY TRACT REASON FOR EXAM: Female, 58 years old. abnormal pelvic ultrasound RADIATION DOSAGE (If Supplied By Facility): CTDIvol = ( 16.18 ) mGy, DLP = ( 982.63 ) mGycm TECHNIQUE: Oral and amp; IV Readi-CAT and amp; 100mL Isovue-370 was administered. Transaxial images were obtained from the dome of the diaphragm to the symphysis pubis in the arterial, nephrographic and excretory phases. Multiplanar coronal and sagittal images were reformatted. The protocol utilizes one or more of the following dose reduction techniques: automated exposure control, adjustment of mA and/or kV according to patient size,and/or use of iterative reconstruction technique. COMPARISON: US PelvisOct 2023 4:56pm FINDINGS: The visualized lung bases are unremarkable. The visualized portions of the heart are within normal limits. Normal liver. There are surgical clips in the gallbladder fossa consistent with a prior cholecystectomy. Normal spleen. Normal pancreas. Normal bilateral adrenal glands. Normal visualized stomach. Normal small intestine. Normal colon. The appendix is visualized and appears normal. Normal abdominal aorta. No retroperitoneal adenopathy. Normal right kidney. Normal left kidney. Normal urinary bladder. Surgical rafaela are seen near the left ovary consistent with tubal ligation. The sigmoid colon is in close proximity to the left ovary. The uterus is unremarkable. The right ovary is not identified. Normal abdominal wall. Normal osseous structures. CT/Abdomen/Pelvis WITH Contrast IMPRESSION: Unremarkable study. There is no abnormal mass in the pelvis. The sigmoid colon is in close proximity to the left ovary. This correlates with the ultrasound finding. Electronically Signed: Colleen Peter MD at 8:06 [facility] [place] Reading Location ID and State: [facility] / [place] Tel , Service support , CC: BARB Viveros; Dr. Missy Damon MD Digital Data Analyst: Signed Normal [facility] ABD Limited w/ Elastographyo n 01-17-2024 ABD Limited w/ Elastography [facility] Imaging Services [address] [place] [id number] ABD Limited w/ Elastography MR#: [id number] Acct: [id number] Name: KUMAR DANIELLE Rep #: [id number] : 1965 F 58 From: Bronson alvarado MD PCP: BARB Rodriguez Status: REG CLI Study: ABD Limited w/ Elastography Date of Exam: 12/26 06/17 Exam# [id number] Ordering Dr: Janet You [address] [place] [id number] STUDY: ABDOMINAL ULTRASOUND - RIGHT UPPER QUADRANT; ELASTOGRAPHY REASON FOR VISIT: Female, 58 years old. Fatty infiltration of the liver. TECHNIQUE: Ultrasound evaluation of the right upper quadrant was performed with real-time and static ryan-scale imaging. Point quantification shear wave elastography was performed (Fonality). TECHNICAL QUALITY: Adequate. COMPARISON: Comparison is made with prior study dated December 11, 2015. FINDINGS: Liver: The liver measures 13.8 cm. There is increased echogenicity consistent with fatty infiltration. The bile ducts are within normal limits. There is hepatic color flow. The direction of portal flow is hepatopetal. There is no demonstrated mass lesion. Median liver stiffness measured 7.1 kPa. Gallbladder: The patient is status post cholecystectomy. Common Bile Duct (C.B.D.): The common bile duct measures 4.4 mm. Pancreas: There is increased echogenicity of the pancreas. There is no demonstrated pancreatic mass or cyst. Right Kidney: Normal size of the right kidney. The right kidney measures 10.5 cm x 5.2 cm x 4.5 cm. Normal renal cortex. The right cortex measures 1.3 cm. There is no demonstrated renal mass or cyst. There is no right hydronephrosis. US/ABD Limited w/ Elastography IMPRESSION: 1. Liver stiffness measures 7.1 kPa compatible with F2-F3 (Mild to moderate liver fibrosis) Metavir score. Electronically Signed: Bronson Hare MD at 13:41 EDT Reading Location ID and State: [address] [place] [address] , Service support , CC: BARB Viveros; BARB You Digital Data Analyst: Signed Normal [facility] L7000.0750on 01-13-2024 P ELASTASE,FECA > 800 Normal >200 [facility] Comment on above: Result Comment: Resu lt Units: ug Elast./g Severe Pancreatic Insufficiency: <100 Moderate Pancreatic Insufficiency: 100 - 200 Normal: >200 Performed By: #### L 7000.0750, M100.0605, L7000.0700 #### [facility] [address] [place], [place], [id number] L5500.0550on 01-11-2024 BEEF 0.22 kU/L Abnormal Class 0/I [facility] Comment on above: Performed By: #### L 5500.0550, L3300.0960, L501.6710, L506.1000, L506.0400, L501.33120, L504.2610, L101.9900, L501.9520, L100.0100, L500.4050 ####[facility] [address] [place], [place], [phone] CHOCOLATE <0.10 Normal Class 0 [facility] Comment on above: Performed By: #### L 5500.0550, L3300.0960, L501.6710, L506.1000, L506.0400, L501.36720, L504.2610, L101.9900, L501.9520, L100.0100, L500.4050 ####[facility] [address] [place], [place], [phone] CODFISH <0.10 Normal Class 0 [facility] Comment on above: Performed By: #### L 5500.0550, L3300.0960, L501.6710, L506.1000, L506.0400, L501.56415, L504.2610, L101.9900, L501.9520, L100.0100, L500.4050 ####[facility] [address] [place], [address] COMMENT Comment Normal . [facility] Comment on above: Result Comment: Kristin frost of Specific IgE Class Description of Class ----- < 0.10 0 Negative 0.10 - 0.31 0/I Equivocal/Low 0.32 - 0.55 I Low 0.56 - 1.40 II Moderate 1.41 - 3.90 III High 3.91 - 19.00 IV Very High 19.01 - 100.00 V Very High >100.00 Very High Performed By: #### L 5500.0550, L3300.0960, L501.6710, L506.1000, L506.0400, L501.20944, L504.2610, L101.9900, L501.9520, L100.0100, L500.4050 ####[facility] [address] [facility] [address] [place], [place], [phone] CORN 0.31 kU/L Abnormal Class 0/I [facility] Comment on above: Performed By: #### L 5500.0550, L3300.0960, L501.6710, L506.1000, L506.0400, L501.53685, L504.2610, L101.9900, L501.9520, L100.0100, L500.4050 ####[facility] [address] [facility] [place], [address] EGG, WHOLE 0.16 kU/L Abnormal Class 0/I [facility] Comment on above: Result Comment: Perf ormed at: - [facility] [id number] Manager Utility: Mark Sullivan MD, Phone: [phone] Performed By: #### L 5500.0550, L3300.0960, L501.6710, L506.1000, L506.0400, L501.55344, L504.2610, L101.9900, L501.9520, L100.0100, L500.4050 ####[facility] [address] [place], [address] MILK (COW) 0.30 kU/L Abnormal Class 0/I [facility] Comment on above: Performed By: #### L 5500.0550, L3300.0960, L501.6710, L506.1000, L506.0400, L501.25875, L504.2610, L101.9900, L501.9520, L100.0100, L500.4050 ####[facility] [address] [place], [address] MUSSELS <0.10 Normal Class 0 [facility] Comment on above: Performed By: #### L 5500.0550, L3300.0960, L501.6710, L506.1000, L506.0400, L501.11271, L504.2610, L101.9900, L501.9520, L100.0100, L500.4050 ####[facility] [address] [place], [address] PEANUT 0.60 kU/L Abnormal Class II [facility] Comment on above: Performed By: #### L 5500.0550, L3300.0960, L501.6710, L506.1000, L506.0400, L501.24803, L504.2610, L101.9900, L501.9520, L100.0100, L500.4050 ####[facility] [address] [place], [address] PORK <0.10 Normal Class 0 [facility] Comment on above: Performed By: #### L 5500.0550, L3300.0960, L501.6710, L506.1000, L506.0400, L501.90925, L504.2610, L101.9900, L501.9520, L100.0100, L500.4050 ####[facility] [address] [place], [place], [phone] SALMON <0.10 Normal Class 0 [facility] Comment on above: Performed By: #### L 5500.0550, L3300.0960, L501.6710, L506.1000, L506.0400, L501.16208, L504.2610, L101.9900, L501.9520, L100.0100, L500.4050 ####[facility] [address] [place], [place], [phone] SHRIMP <0.10 Normal Class 0 [facility] Comment on above: Performed By: #### L 5500.0550, L3300.0960, L501.6710, L506.1000, L506.0400, L501.90249, L504.2610, L101.9900, L501.9520, L100.0100, L500.4050 ####[facility] [address] [place], [place], [phone] SOYBEAN 0.26 kU/L Abnormal Class 0/I [facility] Comment on above: Performed By: #### L 5500.0550, L3300.0960, L501.6710, L506.1000, L506.0400, L501.25761, L504.2610, L101.9900, L501.9520, L100.0100, L500.4050 ####[facility] [address] [place], [place], [phone] TUNA <0.10 Normal Class 0 [facility] Comment on above: Performed By: #### L 5500.0550, L3300.0960, L501.6710, L506.1000, L506.0400, L501.86560, L504.2610, L101.9900, L501.9520, L100.0100, L500.4050 ####[facility] [address] [place], [address] WHEAT 0.37 kU/L Abnormal Class I [facility] Comment on above: Performed By: #### L 5500.0550, L3300.0960, L501.6710, L506.1000, L506.0400, L501.27702, L504.2610, L101.9900, L501.9520, L100.0100, L500.4050 ####[facility] [address] [place], [address] Vitamin D 1,25-Dihydroxyon VIT D 1,25 DIHY 62.3 pg/mL Normal 24.8-81.5 [facility] Comment on above: Performed By: #### L 5500.0550, L3300.0960, L501.6710, L506.1000, L506.0400, L501.53083, L504.2610, L101.9900, L501.9520, L100.0100, L500.4050 ####[facility] [address] [place], [place], [address] Calprotectin, Stoolon [address] 35 ug/g Normal 0-120 [facility] Comment on above: Result Comment: Conc entration Interpretation Follow-Up < 5 - 50 ug/g Normal None >50 -120 ug/g Borderline Re-evaluate in 4-6 weeks >120 ug/g Abnormal Repeat as clinically indicated Performed at: - [facility] [id number] Manager Utility: Mark Sullivan MD, Phone: [phone] Performed By: #### L 7000.0750, M100.0605, L7000.0700 #### [facility] [address] [place], [address] Stool Lactoferrin/WBCon 12-25 WBCST Normal Reference Ran ge = Negative Fecal WBC Lactoferrin Negative: No Fecal WBC Lactoferrin present Normal [facility] Comment on above: Performed By: #### L 7000.0750, M100.0605, L7000.0700 #### [facility] [address] [place], [address] CBC W/Diff, Automatedon 12-25 Absolute Lymph 2.94 X10 3/uL Normal 0.83-4.51 [facility] Comment on above: Performed By: #### L 5500.0550, L3300.0960, L501.6710, L506.1000, L506.0400, L501.76481, L504.2610, L101.9900, L501.9520, L100.0100, L500.4050 ####[facility] [address] [place], [address] Absolute Neut 6.6 X10 3/uL Normal 2.0-7.7 [facility] Comment on above: Performed By: #### L 5500.0550, L3300.0960, L501.6710, L506.1000, L506.0400, L501.81927, L504.2610, L101.9900, L501.9520, L100.0100, L500.4050 ####[facility] [address] [place], [address] Basophils/100 WBC (Bld) 0.5 % Normal 0-1 [facility] Comment on above: Performed By: #### L 5500.0550, L3300.0960, L501.6710, L506.1000, L506.0400, L501.03093, L504.2610, L101.9900, L501.9520, L100.0100, L500.4050 ####[facility] [address] [place], [address](684) Eosinophils/100 WBC (Bld) 1.1 % Normal 0-5 [facility] Comment on above: Performed By: #### L 5500.0550, L3300.0960, L501.6710, L506.1000, L506.0400, L501.93951, L504.2610, L101.9900, L501.9520, L100.0100, L500.4050 ####[facility] [address] [place], [address](199) Erythrocyte distribution width (RBC) [Ratio] 12.6 % Normal 11.6-14.6 [facility] Comment on above: Performed By: #### L 5500.0550, L3300.0960, L501.6710, L506.1000, L506.0400, L501.37891, L504.2610, L101.9900, L501.9520, L100.0100, L500.4050 ####[facility] [address] [place], [place], [phone]) Hematocrit (Bld) [Volume fraction] 46.2 % Normal 37-47 [facility] Comment on above: Performed By: #### L 5500.0550, L3300.0960, L501.6710, L506.1000, L506.0400, L501.46639, L504.2610, L101.9900, L501.9520, L100.0100, L500.4050 ####[facility] [address] [place], [address](882) Hemoglobin (Bld) [Mass/Vol] 14.8 g/dL Normal 12.0-15.0 [facility] Comment on above: Performed By: #### L 5500.0550, L3300.0960, L501.6710, L506.1000, L506.0400, L501.51185, L504.2610, L101.9900, L501.9520, L100.0100, L500.4050 ####[facility] [address] [place], [address] IG% 0.200 Normal 0.0-0.9 [facility] Comment on above: Result Comment: IG% - Immature Granulocytes (promyelocytes, myelocytes and metamyelocytes) > 1% indicates that a LEFT SHIFT is Present. Performed By: #### L 5500.0550, L3300.0960, L501.6710, L506.1000, L506.0400, L501.83480, L504.2610, L101.9900, L501.9520, L100.0100, L500.4050 ####[facility] [address] [place], [place], [phone] Lymphocytes/100 WBC (Bld) 29.2 % Normal 19-41 [facility] Comment on above: Performed By: #### L 5500.0550, L3300.0960, L501.6710, L506.1000, L506.0400, L501.52476, L504.2610, L101.9900, L501.9520, L100.0100, L500.4050 ####[facility] [address] [place], [place], [phone] MCH (RBC) [Entitic mass] 29.3 pg Normal 27.0-32.0 [facility] Comment on above: Performed By: #### L 5500.0550, L3300.0960, L501.6710, L506.1000, L506.0400, L501.65244, L504.2610, L101.9900, L501.9520, L100.0100, L500.4050 ####[facility] [address] [place], [place], [phone] MCHC (RBC) [Mass/Vol] 32.0 g/dL Normal 32-36 [facility] Comment on above: Performed By: #### L 5500.0550, L3300.0960, L501.6710, L506.1000, L506.0400, L501.77532, L504.2610, L101.9900, L501.9520, L100.0100, L500.4050 ####[facility] [address] [place], [place], [phone](804) MCV (RBC) [Entitic vol] 91.5 fL Normal 81-99 [facility] Comment on above: Performed By: #### L 5500.0550, L3300.0960, L501.6710, L506.1000, L506.0400, L501.84194, L504.2610, L101.9900, L501.9520, L100.0100, L500.4050 ####[facility] [address] [place], [place], [phone](398) Monocytes/100 WBC (Bld) 3.5 % Normal 0-10 [facility] Comment on above: Performed By: #### L 5500.0550, L3300.0960, L501.6710, L506.1000, L506.0400, L501.07521, L504.2610, L101.9900, L501.9520, L100.0100, L500.4050 ####[facility] [address] [place], [place], [phone](763) Neutrophils/100 WBC (Bld) 65.5 % Normal 47-70 [facility] Comment on above: Performed By: #### L 5500.0550, L3300.0960, L501.6710, L506.1000, L506.0400, L501.38444, L504.2610, L101.9900, L501.9520, L100.0100, L500.4050 ####[facility] [address] [place], [address] Nucleated RBC (Bld) [#/Vol] 0 10*3/uL Normal 0-5 [facility] Comment on above: Performed By: #### L 5500.0550, L3300.0960, L501.6710, L506.1000, L506.0400, L501.41261, L504.2610, L101.9900, L501.9520, L100.0100, L500.4050 ####[facility] [address] [place], [address] Platelet mean volume (Bld) [Entitic vol] 9.9 fL Normal 6.2-12.0 [facility] Comment on above: Performed By: #### L 5500.0550, L3300.0960, L501.6710, L506.1000, L506.0400, L501.93020, L504.2610, L101.9900, L501.9520, L100.0100, L500.4050 ####[facility] [address] [place], [address] Platelets (Bld) [#/Vol] 354 10*3/uL Normal 150-450 [facility] Comment on above: Performed By: #### L 5500.0550, L3300.0960, L501.6710, L506.1000, L506.0400, L501.50600, L504.2610, L101.9900, L501.9520, L100.0100, L500.4050 ####[facility] [address] [place], [address] RBC (Bld) [#/Vol] 5.05 10*6/uL Normal 4.2-5.4 [facility] Comment on above: Performed By: #### L 5500.0550, L3300.0960, L501.6710, L506.1000, L506.0400, L501.11298, L504.2610, L101.9900, L501.9520, L100.0100, L500.4050 ####[facility] [address] [place], [address] RDW SD 41.7 fl Normal 35.1-43.9 [facility] Comment on above: Performed By: #### L 5500.0550, L3300.0960, L501.6710, L506.1000, L506.0400, L501.60482, L504.2610, L101.9900, L501.9520, L100.0100, L500.4050 ####[facility] [address] [place], [address] WBC (Bld) [#/Vol] 10.1 10*3/uL Normal 4.4-11.0 [facility] Comment on above: Performed By: #### L 5500.0550, L3300.0960, L501.6710, L506.1000, L506.0400, L501.31739, L504.2610, L101.9900, L501.9520, L100.0100, L500.4050 ####[facility] [address] [place], [address] CRPon 01-05-2024 C-REACTIVE PROT 6.15 mg/L High 0.0-3.0 [facility] Comment on above: Order Comment: 1 Result Comment: C-Re active Protein (CRP) provides useful information for the diagnosis, therapy and monitoring of inflammatory processes and associated diseases. For the evaluation of Relative Risk for Cardiovascular Disease, a High Sensitivity CRP (HSCRP) should be ordered. Performed By: #### L 5500.0550, L3300.0960, L501.6710, L506.1000, L506.0400, L501.15915, L504.2610, L101.9900, L501.9520, L100.0100, L500.4050 ####[facility] [address] [place], [address] Comprehensive Metabolic Prof ilon 01-05-2024 Albumin [Mass/Vol] 4.3 g/dL Normal 3.2-5.0 [facility] Comment on above: Order Comment: 1 Performed By: #### L 5500.0550, L3300.0960, L501.6710, L506.1000, L506.0400, L501.67756, L504.2610, L101.9900, L501.9520, L100.0100, L500.4050 ####[facility] [address] [place], [address] Albumin/Globulin [Mass ratio] 1.1 {ratio} Normal 0.9-2.4 [facility] Comment on above: Order Comment: 1 Performed By: #### L 5500.0550, L3300.0960, L501.6710, L506.1000, L506.0400, L501.33645, L504.2610, L101.9900, L501.9520, L100.0100, L500.4050 ####[facility] [address] [place], [place], [id number] ALK P 136 U/L High 45-117 [facility] Comment on above: Order Comment: 1 Performed By: #### L 5500.0550, L3300.0960, L501.6710, L506.1000, L506.0400, L501.44632, L504.2610, L101.9900, L501.9520, L100.0100, L500.4050 ####[facility] [address] [place], [place], [id number] ALT [Catalytic activity/Vol] 58 U/L High 13-56 [facility] Comment on above: Order Comment: 1 Performed By: #### L 5500.0550, L3300.0960, L501.6710, L506.1000, L506.0400, L501.20619, L504.2610, L101.9900, L501.9520, L100.0100, L500.4050 ####[facility] [address] [place], [place], [phone] AST [Catalytic activity/Vol] 41 U/L High 15-37 [facility] Comment on above: Order Comment: 1 Performed By: #### L 5500.0550, L3300.0960, L501.6710, L506.1000, L506.0400, L501.36309, L504.2610, L101.9900, L501.9520, L100.0100, L500.4050 ####[facility] [address] [place], [place], [phone](178) Bilirubin [Mass/Vol] 0.40 mg/dL Normal 0.20-1.00 [facility] Comment on above: Order Comment: 1 Result Comment: For patients on eltrombopag therapy, use of Dimension Bison TBIL is not recommended. Performed By: #### L 5500.0550, L3300.0960, L501.6710, L506.1000, L506.0400, L501.75810, L504.2610, L101.9900, L501.9520, L100.0100, L500.4050 ####[facility] [address] [place], [address] BUN/CRE 12.4 RATIO Normal 10-20 [facility] Comment on above: Order Comment: 1 Performed By: #### L 5500.0550, L3300.0960, L501.6710, L506.1000, L506.0400, L501.31546, L504.2610, L101.9900, L501.9520, L100.0100, L500.4050 ####[facility] [address] [place], [address] CA,Total 10.4 mg/dL High 8.5-10.1 [facility] Comment on above: Order Comment: 1 Performed By: #### L 5500.0550, L3300.0960, L501.6710, L506.1000, L506.0400, L501.15650, L504.2610, L101.9900, L501.9520, L100.0100, L500.4050 ####[facility] [address], [address] Chloride [Moles/Vol] 106 mmol/L Normal 98-107 [facility] Comment on above: Order Comment: 1 Performed By: #### L 5500.0550, L3300.0960, L501.6710, L506.1000, L506.0400, L501.21083, L504.2610, L101.9900, L501.9520, L100.0100, L500.4050 ####[facility] [address] [place], [place], [phone](724) CO2 [Moles/Vol] 28.0 mmol/L Normal 21.0-32.0 [facility] Comment on above: Order Comment: 1 Performed By: #### L 5500.0550, L3300.0960, L501.6710, L506.1000, L506.0400, L501.62865, L504.2610, L101.9900, L501.9520, L100.0100, L500.4050 ####[facility] [address] [place], [place], [phone](701) Creatinine [Mass/Vol] 0.89 mg/dL Normal 0.55-1.02 [facility] Comment on above: Order Comment: 1 Result Comment: The validity of the calculated GFR GFRAA in patients over 70 years has not been determined. Clinical correlation is essential. Performed By: #### L 5500.0550, L3300.0960, L501.6710, L506.1000, L506.0400, L501.88704, L504.2610, L101.9900, L501.9520, L100.0100, L500.4050 ####[facility] [address] [place], [address] EST GFR - AA 84 mL/min Normal >60 [facility] Comment on above: Order Comment: 1 Result Comment: Afri can Tanzanian GFR Calc Performed By: #### L 5500.0550, L3300.0960, L501.6710, L506.1000, L506.0400, L501.38720, L504.2610, L101.9900, L501.9520, L100.0100, L500.4050 ####[facility] [address] [place], [address] GAP 6 Normal 5-15 [facility] Comment on above: Order Comment: 1 Performed By: #### L 5500.0550, L3300.0960, L501.6710, L506.1000, L506.0400, L501.53073, L504.2610, L101.9900, L501.9520, L100.0100, L500.4050 ####[facility] [address] [place], [place], [phone] GFR/1.73 sq M.predicted among non-blacks MDRD (S/P/Bld) [Vol rate/Area] 69 mL/min/{1.73_m2} Normal >60 [facility] Comment on above: Order Comment: 1 Result Comment: Non- GFR Calc Performed By: #### L 5500.0550, L3300.0960, L501.6710, L506.1000, L506.0400, L501.70093, L504.2610, L101.9900, L501.9520, L100.0100, L500.4050 ####[facility] [address] [place], [address] Globulin (S) [Mass/Vol] 3.9 g/dL Normal 2.2-4.2 [facility] Comment on above: Order Comment: 1 Performed By: #### L 5500.0550, L3300.0960, L501.6710, L506.1000, L506.0400, L501.15848, L504.2610, L101.9900, L501.9520, L100.0100, L500.4050 ####[facility] [address] [place], [address] Glucose [Mass/Vol] 103 mg/dL Normal 74-106 [facility] Comment on above: Order Comment: 1 Result Comment: Fast ing Glucose result from 100 to 125 mg/dL suggests IMPAIRED HOMEOSTASIS per A.D.A. criteria. Performed By: #### L 5500.0550, L3300.0960, L501.6710, L506.1000, L506.0400, L501.88811, L504.2610, L101.9900, L501.9520, L100.0100, L500.4050 ####[facility] [address] [place], [address] Potassium [Moles/Vol] 3.7 mmol/L Normal 3.5-5.1 [facility] Comment on above: Order Comment: 1 Performed By: #### L 5500.0550, L3300.0960, L501.6710, L506.1000, L506.0400, L501.00310, L504.2610, L101.9900, L501.9520, L100.0100, L500.4050 ####[facility] [address] [place], [address] Sodium [Moles/Vol] 139 mmol/L Normal 136-145 [facility] Comment on above: Order Comment: 1 Performed By: #### L 5500.0550, L3300.0960, L501.6710, L506.1000, L506.0400, L501.90550, L504.2610, L101.9900, L501.9520, L100.0100, L500.4050 ####[facility] [address] [place], [address] T PROT 8.2 g/dL Normal 6.4-8.2 [facility] Comment on above: Order Comment: 1 Performed By: #### L 5500.0550, L3300.0960, L501.6710, L506.1000, L506.0400, L501.17610, L504.2610, L101.9900, L501.9520, L100.0100, L500.4050 ####[facility] [address] [place], [address] Urea nitrogen [Mass/Vol] 11 mg/dL Normal 7-18 [facility] Comment on above: Order Comment: 1 Performed By: #### L 5500.0550, L3300.0960, L501.6710, L506.1000, L506.0400, L501.43680, L504.2610, L101.9900, L501.9520, L100.0100, L500.4050 ####[facility] [address] [place], [place], [phone] Erythrocyte Sed Rateon 01-04 SED RATE 11 mm/hr Normal 0-30 [facility] Comment on above: Performed By: #### L 5500.0550, L3300.0960, L501.6710, L506.1000, L506.0400, L501.94116, L504.2610, L101.9900, L501.9520, L100.0100, L500.4050 ####[facility] [address] [place], [address] Free T3on 01-05-2024 Free T3 [Mass/Vol] 2.6 pg/mL Normal 2.18-3.98 [facility] Comment on above: Order Comment: 1 Performed By: #### L 5500.0550, L3300.0960, L501.6710, L506.1000, L506.0400, L501.36362, L504.2610, L101.9900, L501.9520, L100.0100, L500.4050 ####[facility] [address] [place], [address] Gastroenterology Visit Repor ton 01-05-2024 Gastroenterology Visit Report [facility] Gastroenterology [address] [place] [address] OFFICE VISIT Date of Service: 01/05/24 MR#: [id number] Acct: [id number] Name: KUMAR DANIELLE Rep #: [id number] : 1965 Provider: BARB bridges Age/Sex: 58/F Location: [facility] Status: Signed Intake Vital Signs 03/23/23 15:45 12/26/23 08:21 Height 5 ft 1 in 5 ft 1 in Intake Visit Reasons: ABDOMINAL DISCOMFORT Chief Complaint: constipation and bloating Media Sales Representative Required: No Accompanied by: Friend Is patient in pain?: No Allergies zolpidem (From Ambien) Allergy (Verified 12/28/23 12:29) Other Medications ???Medication ???Instructions ???Recorded ???Confirmed ???Type multivitamin 1 tab PO DAILY 03/10/21 12/28/23 History gabapentin 300 mg capsule 300 mg PO DAILY 03/17/22 12/28/23 History doxepin 10 mg capsule 10 mg PO DAILY 03/23/23 12/28/23 History cetirizine 10 mg capsule (All Day 10 mg PO QDAY PRN 12/26/23 12/28/23 History Allergy (cetirizine)) fluticasone propionate 50 1 spray intranasal QDAY 12/26/23 12/28/23 History mcg/actuation nasal spray,suspension (Allergy Relief (fluticasone)) montelukast 10 mg tablet 10 mg PO QDAY 12/26/23 12/28/23 History (Singulair) pantoprazole 20 mg tablet,delayed 20 mg PO QDAY 12/26/23 12/28/23 History release ezetimibe 10 mg tablet 10 mg PO QHS 12/28/23 12/28/23 History Patient : No Have you fallen in the past year?: No Nurse's Note: OV 01.05.24 Pt here for bloating, constipation, and feeling fullness soon after eating. Reports she had abdominal pain last month but has resolved. Colonoscopy 2022. 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 HPI HPI Chief Complaint: constipation and bloating Details: KUMAR DANIELLE, is a 58 F who presents to the office today for establishment with [facility] for complaints of abdominal fullness and lack of appetite. 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 She expresses concern regarding ovarian cancer and has been in communication with her conveyancer who ordered a STAT abdominal CT. This test was not able to be performed as quickly as hoped due to insurance authorization needed. She denies difficulty chewing and swallowing, nausea, vomiting, heartburn, reflux, abdominal pain, excessive gas, hematochezia and melena. She reports having her gallbladder out about 30 years ago and has not had notable digestive difficulties. ROS Const Constitutional: Positive for anorexia and weight change; No body ache, chills, fatigue, fever(s) or abnormal sleep pattern Eyes Eyes: No change in vision ENT ENT: No abnormal hearing or difficulty swallowing Resp Respiratory: No cough Cardio Cardiology: No chest pain at rest, chest pain with exertion or leg pain with exertion Gastro GI: Positive for bloating; No abdominal pain, belching, change in bowel habits, change in stool character, coffee ground emesis, constipation, cramping, diarrhea, heartburn, difficulty swallowing, feeling full early, excessive flatus, incontinent of stools, Vomiting blood/hematemesis, Blood in stool, loose stools, Black,tarry stools, nausea/dyspepsia, pain with swallowing, vomiting or other Genitourinary-Female: Positive for urinary retention Musc Musculoskeletal: No joint pain or leg pain with exertion Skin Skin: No yellowing of the eye or itchy eyes Neuro Neurology: No abnormal hearing Psych Psychiatric: No abnormal sleep pattern, Positive for anxiety and No depression Endo Endocrine: Positive for weight change; No change in body appearance or fatigue Aller/Imm Allergy/Immunologic: No food intolerance or itchy eyes Raffy/Lymp Hematologic/Lymphatic: No easy bleeding or easy bruising Exam Const General: cooperative, healthy appearing, comfortable and no acute distress Nutritional Appearance: average body habitus Orientation: alert HENMT Head: normal to inspection Ears: hearing grossly normal bilaterally Nose: external nose normal Face and sinus: normal facial exam and face symmetric Mouth: oral mucosae normal Eyes General: appearance normal, both eyes and all related structures Sclera: sclerae normal Neck Neck: normal visual inspection and full ROM Neck mass: (more content not included)... Normal [facility] LDHon 01-05-2024 LDH 216 U/L Normal 84-246 [facility] Comment on above: Order Comment: 1 Performed By: #### L 5500.0550, L3300.0960, L501.6710, L506.1000, L506.0400, L501.47670, L504.2610, L101.9900, L501.9520, L100.0100, L500.4050 ####[facility] [address] [place], [place], [phone] T4 Free Directon 01-05-2024 T4 FREE DIRECT 0.83 ng/dL Normal 0.76-1.46 [facility] Comment on above: Order Comment: 1 Performed By: #### L 5500.0550, L3300.0960, L501.6710, L506.1000, L506.0400, L501.03306, L504.2610, L101.9900, L501.9520, L100.0100, L500.4050 ####[facility] [address] [place], [place], [phone] Thyroid Stim Hormone (TSH)on 01-05-2024 TSH 2.130 uIU/mL Normal 0.358-3.740 [facility] Comment on above: Order Comment: 1 Performed By: #### L 5500.0550, L3300.0960, L501.6710, L506.1000, L506.0400, L501.15217, L504.2610, L101.9900, L501.9520, L100.0100, L500.4050 ####[facility] [address] [place], [address] Vitamin D,25 Hydroxyon 01-04 Vitamin D 25-OH 57.1 ng/mL Normal [facility] Comment on above: Result Comment: Kerry min D 25(OH) Status Range Deficiency <20 ng/mL (50nmol/L) Insufficiency 20 - 30 ng/mL (50 - 75 nmol/L) Sufficiency 30 - 100 ng/mL (75 - 250 nmol/L) Toxicity >100 ng/mL (>250 nmol/L) Performed By: #### L 5500.0550, L3300.0960, L501.6710, L506.1000, L506.0400, L501.85681, L504.2610, L101.9900, L501.9520, L100.0100, L500.4050 ####[facility] [address] [place], [address] Pelvic w/ Transvaginalon Pelvic w/ Transvaginal [facility] Services [address] [place] [address] Pelvic w/ Transvaginal MR#: [id number] Acct: [id number] Name: KUMAR DANIELLE STACY Rep #: [id number] : 1965 F 58 From: Lucita Loo MD PCP: BARB Rodriguez Status: REG CLI Study: Pelvic w/ Transvaginal Date of Exam: 01/04/24 Exam# [id number] Ordering Dr: Jacque Stoddard NP [address] -C ADDENDUM by Dr. Lucita Loo MD on 01/04/24 at 2038 [id number] EXAM: US PELVIS TRANSABDOMINAL AND TRANSVAGINAL, COMPLETE CLINICAL INDICATION: pain, bloating TECHNIQUE: Transabdominal and transvaginal pelvic ultrasound was performed with grayscale and color Doppler imaging. Transvaginal imaging was used for better evaluation of the endometrium and adnexa. COMPARISON: None. FINDINGS: UTERUS/CERVIX: 7.4 cm x 3.8 cm x 2.8 cm. Unremarkable with the exception of 1 cm apparent cervical nabothian cyst. Anteverted. There is no uterine mass. Normal 5 mm endometrial stripe thickness measured on transvaginal exam. RIGHT OVARY: 2 cm x 1.1 cm x 1.5 cm. Non-enlarged, normal echogenicity. Blood flow is present in the right ovary. LEFT OVARY: 2.2 cm x 1.3 cm x 1.7 cm adjacent to what appears to be echogenic bowel. Non-enlarged, normal echogenicity. Blood flow is present in the left ovary. FREE FLUID: None. BLADDER: Unremarkable as visualized. Prominently distended on the transabdominal exam, calculated volume 434 cc. Thin wall. 01/05/24 1030 Date cc: BARB Viveros; BARB Stoddard * Signed ADDENDUM by Dr. Lucita Loo MD on 01/04/24 at 2037 US/Pelvic w/ Transvaginal IMPRESSION: Unremarkable uterus and ovaries with the exception of possibly adherent bowel. Closely adjacent to left ovary according to the developmental therapist''s note and real-time exam. There is history of tubal ligation. CT is suggested for additional evaluation of adherent-appearing bowel in the left adnexa if it is thought to be indicated. Considerations include crowded intrapelvic structures, adnexal scarring with adhesions, and infiltrative neoplasm or inflammation. N.B. : Kalli Mcnulty OT, confirmed on 01/05/2024 10:23:10 (ET) that the healthcare facility has received the radiology report. Electronically Signed: Lucita Loo MD at 20:38 EDT , 01/05/24 1030 Date cc: BARB Viveros; BARB Stoddard * Signed ACR Level 3 findings have been noted. An addendum which confirms receipt of the report will follow. [id number] EXAM: US PELVIS TRANSABDOMINAL AND TRANSVAGINAL, COMPLETE CLINICAL INDICATION: pain, bloating TECHNIQUE: Transabdominal and transvaginal pelvic ultrasound was performed with grayscale and color Doppler imaging. Transvaginal imaging was used for better evaluation of the endometrium and adnexa. COMPARISON: None. FINDINGS: UTERUS/CERVIX: 7.4 cm x 3.8 cm x 2.8 cm. Unremarkable with the exception of 1 cm apparent cervical nabothian cyst. Anteverted. There is no uterine mass. Normal 5 mm endometrial stripe thickness measured on transvaginal exam. RIGHT OVARY: 2 cm x 1.1 cm x 1.5 cm. Non-enlarged, normal echogenicity. Blood flow is present in the right ovary. LEFT OVARY: 2.2 cm x 1.3 cm x 1.7 cm adjacent to what appears to be echogenic bowel. Non-enlarged, normal echogenicity. Blood flow is present in the left ovary. FREE FLUID: None. BLADDER: Unremarkable as visualized. Prominently distended on the transabdominal exam, calculated volume 434 cc. Thin wall. US/Pelvic w/ Transvaginal IMPRESSION: Unremarkable uterus and ovaries with the exception of possibly adherent bowel. Closely adjacent to left ovary according to the developmental therapist''s note and real-time exam. There is history of tubal ligation. CT is suggested for additional evaluation of adherent-appearing bowel in the left adnexa if it is thought to be indicated. Considerations include crowded intrapelvic structures, adnexal scarring with adhesions, and infiltrative neoplasm or inflammation. Electronically Signed: Lucita Loo MD at 20:38 EDT , CC: BARB Viveros; BARB Stoddard Digital Data Analyst: Signed Normal [facility] [employer] Office Visit Reporton 12-26-2023 Remelt [employer]iler Office Visit Report [facility] [address], [address] [place] [address] OFFICE VISIT Date of Service: 12/26/23 MR#: [id number] Acct: [id number] Name: KUMAR DANIELLE Rep #: [id number] : 1965 Provider: BARB aguayo Age/Sex: 57/F Location: [facility] Status: Signed Intake Vital Signs 03/23/23 15:45 12/26/23 08:11 12/26/23 08:21 Height 5 ft 1 in 5 ft 1 in 5 ft 1 in Weight: 178 lb 6 oz BMI 33.7 BP 120/82 H Intake Visit Reasons: Right abd pain, bloating Chief Complaint: Right abd. pain and bloating Media Sales Representative Required: No Is patient in pain?: No Allergies No Known Allergies Allergy (Verified 12/26/23 08:11) Medications ???Medication ???Instructions ???Recorded ???Confirmed ???Type multivitamin 1 tab PO DAILY 03/10/21 12/26/23 History gabapentin 300 mg capsule 300 mg PO DAILY 03/17/22 12/26/23 History doxepin 10 mg capsule 10 mg PO DAILY 03/23/23 12/26/23 History cetirizine 10 mg capsule (All Day 10 mg PO QDAY PRN 12/26/23 12/26/23 History Allergy (cetirizine)) fluticasone propionate 50 1 spray intranasal QDAY 12/26/23 12/26/23 History mcg/actuation nasal spray,suspension (Allergy Relief (fluticasone)) montelukast 10 mg tablet 10 mg PO QDAY 12/26/23 12/26/23 History (Singulair) pantoprazole 20 mg tablet,delayed 20 mg PO QDAY 12/26/23 12/26/23 History release Is last menstrual period known: No Post menopausal: Yes Patient : No : No PFSH Medical History Mild cervical dysplasia, histologically confirmed chronic limes disease Hay fever Shortness of breath Surgical History History of tubal ligation History of cholecystectomy Social History Smoking Status: Never smoker alcohol intake: never substance use type: does not use what type of physical activity do you participate in: none seatbelt use: always do you feel safe at home: Yes 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 HPI Right abd pain, bloating Details: KUMAR DANIELLE is a 57 year old who presents for last 6 mo having lower right pelvic pain and bloating. Is also seeing GI. Denies vaginal bleeding. Had some changes in bowel habits initially but have resolved. History 3 Elective abortions Hx Para 3 Spontaneous abortions Hx # Term Pregnancies 3 Ectopic pregnancies Hx # Pregnancies Multiple births # of living children 3 ROS Const Constitutional: Reports system reviewed and no additional complaints, except as documented Eyes Eyes: Reports system reviewed and no additional complaints, except as documented GI GI: Reports as per HPI : Reports as per HPI Exam Const General: cooperative and no acute distress Orientation: oriented x3 General: bladder normal to palpation External Female Exam: normal external appearance and normal appearance of the urethra Urethra: normal appearance of the urethra Speculum Exam - Vagina: normal appearance of the vagina, normal vaginal discharge, no lesions and nontender Speculum Exam - Cervix: normal appearance of the cervix Bimanual Exam- Vagina Uterus: uterine size normal, bladder normal to palpation, uterine shape normal, uterine mobility normal and other (generalized tenderness over entire lower pelvis) Bimanual Exam- Adnexa, other: normal adnexae and no masses Coding Level of Care Code Off vis,est,level 3 Diagnoses Bloating R14.0 Pelvic pain R10.2 Assessment and Plan Assessment and Plan (1) Bloating: Status: Acute Comment: US (2) Pelvic pain: Status: Acute Comment: US Orders: Orders Pelvic w/ Transvaginal Today R10.2 - Pelvic and perineal pain, R14.0 - Abdominal distension (gaseous) Plan Will proceed with pelvic US and management will be dependent on that. 12/26/23839 Date Jacque Stoddard [address]-C Cosigner Signature: Date (if applicable) CC: Normal [facility] OPERATIVE PROCEDURESon 04-11 OPERATIVE PROCEDURES [facility] OPERATIVE REPORT NAME ACCOUNT SEX AGE ADMIT DISCHARGE PT MED. RECORD# NUMBER DATE DATE TYPE ANIKET, [id number] F 56 04/11/22 2 KUMAR Kapoor [id number] ROOM: [facility] DATE OF : 1965 DICTATING PHYSICIAN: Rodríguez Acosta DATE OF SURGERY: April 11, 2022 SURGEON: Rodríguez Acosta MD MILL DRESSER: ANESTHESIOLOGIST: Johnny Blanc CRNA ANESTHETIC: PREOPERATIVE DIAGNOSIS: POSTOPERATIVE DIAGNOSIS: Screening colonoscopy, biopsy/polypectomy, and wire snare polypectomy. OPERATION PERFORMED: Colonoscopy with biopsy and polypectomy. COMPLICATIONS: ESTIMATED BLOOD LOSS: Minimal. SPECIMEN: Biopsy/polyp at 90 cm sent to Pathology. INDICATIONS: Kumar Danielle is a 56-year-old lady who presents for screening endoscopy. DESCRIPTION OF OPERATION: After informed consent, she was brought to endoscopy and placed on a padded gurney in the left lateral decubitus position with adequate padding of pressure points, and time-out verification was done appropriately. She was given sedation per Anesthesia with monitoring throughout. Digital examination showed small external hemorrhoidal tags, normal tone, small internal tags, and no discrete mass. The Olympus CF-[id number] flexible endoscope was passed through the anal verge and carefully advanced, protecting the surrounding mucosa. The scope was advanced through the rectal vault and in through the sigmoid colon, which was rather tortuous, and then through the descending colon, beyond the splenic flexure, transverse colon, hepatic flexure, and ascending colon toward the ileocecal junction. The Page 1 of 2 KUMAR DANIELLE Operative Report KUMAR DANIELLE : 1965 landmarks were documented. The prep was adequate. The scope was carefully withdrawn with circumferential visualization, irrigation and suctioning in a [id number]-[id number] movement. The cecum and ascending colon were carefully viewed. At 90 cm from the anal verge, there was a pedunculated polyp which was about 0.8 cm in width. This was biopsied with the cold grasp forceps and then removed with wire snares using standard hot wire technique. There was excellent hemostasis. The scope was further withdrawn through the transverse, descending and sigmoid colon and down into the rectal vault, retroflexed, rotated, straightened out, and withdrawn with decompression. There were small internal and external hemorrhoids, but no tear, no fissure and no fungating mass otherwise, other than the polyp at 90 cm. The specimen was sent to Pathology. The patient tolerated the procedure well. The patient was awakened and sent to the recovery room in good condition. The case will be discussed with the patient when she is more awake, and follow-up for pathology will be in the office. Dictated By: Rodríguez Acosta MD 04/11/22 09:28 JOB #: [id number] Transcribed By: stephany 04/11/22 10:31 Electronically signed by: E-Sign Dr. Rodríguez Acosta MD 04/11/22 19:27 Page 2 of 2 KUMAR DANIELLE Operative Report Normal [facility] Basophil percentageon 2021 Bilirubin [Mass/Vol] 0.30 mg/dL 0.20-1.00 [facility] Work Phone: Comment on above: For patients on eltr ombopag therapy, use of Dimension Bison TBIL is not recommended. Chloride [Moles/Vol] 105 mmol/L 98-107 [facility] Work Phone: Cholesterol [Mass/Vol] 235 mg/dL <200 [facility] Work Phone: Comment on above: <200 mg/dL Desirable 200-240 mg/dL Borderline >240 mg/dL High Risk Glucose [Mass/Vol] 87 mg/dL 74-106 [facility] Work Phone: Potassium [Moles/Vol] 4.0 mmol/L 3.5-5.1 [facility] Work Phone: Protein [Mass/Vol] 7.6 g/dL 6.4-8.2 [facility] Work Phone: Sodium [Moles/Vol] 140 mmol/L 136-145 [facility] Work Phone: Triglyceride [Mass/Vol] 185 mg/dL <199 [facility] Work Phone: Comment on above: The drugs N-Acetylcy steine and Metamizole may falsely depress this assay.Serum Triglycerides Reference Interval Normal <150 mg/dL Borderline high 150 - 199 mg/dL High 200 - 499 mg/dL Very High > or = 500 mg/dL WBC (Bld) [#/Vol] 5.4 10*3/uL 4.4-11.0 [facility] Work Phone: Blood erythrocytes count (nu mber/volume)on 11-12-2021 RBC (Bld) [#/Vol] 4.61 10*6/uL 4.2-5.4 [facility] Work Phone: Blood hemoglobin measurement (mass/volume)on 11-12-2021 Hemoglobin (Bld) [Mass/Vol] 14.2 g/dL 12.0-15.0 [facility] Work Phone: Blood platelet mean volumeon 11-12-2021 Platelet mean volume (Bld) [Entitic vol] 10.6 fL 6.2-12.0 [facility] Work Phone: Determination of erythrocyte mean corpuscular volume (MCV)on 11-12-2021 MCV (RBC) [Entitic vol] 95.0 fL 81-99 [facility] Work Phone: Erythrocyte sedimentation ra magdy 11-12-2021 ESR (Bld) [Velocity] 7 mm/h 0-30 [facility] Work Phone: Hematocrit Auto (Bld) [Volum e fraction]on 11-12-2021 Hematocrit (Bld) [Volume fraction] 43.8 % 37-47 [facility] Work Phone: Laboratory - Chemistry and C hemistry - challengeon 11-12-2021 ALP [Catalytic activity/Vol] 106 U/L 45-117 [facility] Work Phone: ALT [Catalytic activity/Vol] 47 U/L 13-56 [facility] Work Phone: CO2 [Moles/Vol] 28.0 mmol/L 21.0-32.0 [facility] Work Phone: Free T4 [Mass/Vol] 0.90 ng/dL 0.76-1.46 [facility] Work Phone: Globulin (S) [Mass/Vol] 3.9 g/dL 2.2-4.2 [facility] Work Phone: Urea nitrogen/Creatinine [Mass ratio] 13.7 mg/mg 10-20 [facility] Work Phone: Laboratory - Hematology and Cell countson 11-12-2021 Erythrocyte distribution width (RBC) [Entitic vol] 42.2 fL 35.1-43.9 [facility] Work Phone: Erythrocyte distribution width (RBC) [Ratio] 12.0 % 11.6-14.6 [facility] Work Phone: MCH (RBC) [Entitic mass] 30.8 pg 27.0-32.0 [facility] Work Phone: MCHC Auto (RBC) [Mass/Vol]on 11-12-2021 MCHC (RBC) [Mass/Vol] 32.4 g/dL 32-36 [facility] Work Phone: No Panel Informationon 11-12 Anti-Nuclear Antibody Screen Negative Negative [facility] Work Phone: Comment on above: Performed at: [address] [id number] Director: Patrick Carpenter PhD, Phone: [phone] Estimated GFR (MDRD) Amer 95 mL/min >60 [facility] Work Phone: Comment on above: GFR Calc Estimated GFR (MDRD) Non-Af Amer 78 mL/min >60 [facility] Work Phone: Comment on above: Non- GFR Calc Thyroid Stimulating Hormone (TSH) 1.90 uIU/mL 0.358-3.74 [facility] Work Phone: Platelets bldon 11-12-2021 Platelets (Bld) [#/Vol] 274 10*3/uL 150-450 [facility] Work Phone: Serum or plasma C reactive p rotein measurement (mass/volume)on 11-12-2021 CRP [Mass/Vol] mg/L 0.0-3.0 [facility] Work Phone: Comment on above: C-Reactive Protein ( CRP) provides useful information for thediagnosis, therapy and monitoring of inflammatory processesand associated diseases. For the evaluation of Relative Riskfor Cardiovascular Disease, a High Sensitivity CRP (HSCRP)should be ordered. Serum or plasma albumin deena urement (mass/volume)on 11-12-2021 Albumin [Mass/Vol] 3.7 g/dL 3.2-5.0 [facility] Work Phone: Serum or plasma albumin/glob ulin mass ratioon 11-12-2021 Albumin/Globulin [Mass ratio] 0.9 {ratio} 0.9-2.4 [facility] Work Phone: Serum or plasma calcium deena urement (mass/volume)on 11-12-2021 Calcium [Mass/Vol] 9.7 mg/dL 8.5-10.1 [facility] Work Phone: Serum or plasma cholesterol in HDL measurement (mass/volume)on 11-12-2021 Cholesterol in HDL [Mass/Vol] 65 mg/dL >40 [facility] Work Phone: Comment on above: The drugs N-Acetylcy steine and Metamizole may falsely depress this assay. Reference Range HDL <40 mg/dL Low HDL Cholesterol HDL >or= 60 mg/dL High HDL Cholesterol Serum or plasma cholesterol in VLDL measurement (mass/volume)on 11-12-2021 Cholesterol in VLDL [Mass/Vol] 37 mg/dL 5-40 [facility] Work Phone: Serum or plasma creatinine m easurement (mass/volume)on 11-12-2021 Creatinine [Mass/Vol] 0.80 mg/dL 0.55-1.02 [facility] Work Phone: Comment on above: The validity of the calculated GFR & GFRAA in patients over 70 years has not been determined. Clinical correlation is essential. Serum or plasma low density lipoprotein (LDL) cholesterol measurement (mass/volume)on 11-12-2021 Cholesterol in LDL [Mass/Vol] 133 mg/dL 0-130 [facility] Work Phone: Serum or plasma urea nitroge n measurement (mass/volume)on 11-12-2021 Urea nitrogen [Mass/Vol] 11 mg/dL 7-18 [facility] Work Phone: Serum rheumatoid factor dete ctionon 11-12-2021 Rheumatoid factor Ql (S) < 10.0 IU/mL <15 [facility] Work Phone: Thin prep Papanicolaou smear with manual screeningon 11-12-2021 Thin prep Papanicolaou smear with manual screening 31 U/L 15-37 [facility] Work Phone: Thin prep Papanicolaou smear with manual screening 7 5-15 [facility] Work Phone: Thin prep Papanicolaou smear with manual screening Negative Negative [facility] Work Phone: Comment on above: Lyme Antibody Negati veNo laboratory evidence of infection with B. burgdorferi(Lyme disease). Negative results may occur in patientsrecently infected (less than or equal to 14 days) with B.burgdorferi. If recent infection is suspected, repeattesting on a new sample collected in 7 to 14 days isrecommended.Performed at: [facility] [id number] Director: Patrick Carpenter PhD, Phone: [phone] CBC AND ELECTRONIC DIFFon Basophils (Bld) [#/Vol] 0.05 10*3/uL Normal 0.00-0.15 [facility] Comment on above: Performed By: #### L [id number] #### [facility] (DEFAULT) [address] [place] [address] Basophils/100 WBC (Bld) 0.8 % Normal [facility] Comment on above: Performed By: #### L [id number] #### [facility] (DEFAULT) [address] [place] [address] DIFF STATUS Electronic Differential Normal [facility] Comment on above: Performed By: #### L [id number] #### [facility] (DEFAULT) [address] [place] [address] Eosinophils (Bld) [#/Vol] 0.14 10*3/uL Normal 0.00-0.42 [facility] Comment on above: Performed By: #### L [id number] #### [facility] (DEFAULT) [address] [place] [address] Eosinophils/100 WBC (Bld) 2.2 % Normal [facility] Comment on above: Performed By: #### L [id number] #### [facility] (DEFAULT) [address] [place] [address] Hematocrit (Bld) [Volume fraction] 43.0 % Normal 34.9-44.3 [facility] Comment on above: Performed By: #### L [id number] #### [facility] (DEFAULT) [address] [place] [address] Hemoglobin (Bld) [Mass/Vol] 13.6 g/dL Normal 11.4-15.2 [facility] Comment on above: Performed By: #### L [id number] #### [facility] (DEFAULT) [address] [place] [address] Immature Grans % 0.2 % Normal [facility] Comment on above: Performed By: #### L [id number] #### [facility] (DEFAULT) [address] [place] [address] Immature Grans Absolute <0.04 Normal <=0.09 [facility] Comment on above: Performed By: #### L [id number] #### [facility] (DEFAULT) [address] [place] [address] Lymphocytes (Bld) [#/Vol] 2.32 10*3/uL Normal 1.16-3.51 [facility] Comment on above: Performed By: #### L [id number] #### [facility] (DEFAULT) [address] [place] [address] 38844 Lymphocytes/100 WBC (Bld) 37.1 % Normal [facility] Comment on above: Performed By: #### L [id number] #### [facility] (DEFAULT) [address] [address] MCV (RBC) [Entitic vol] 96.8 fL Normal 79.6-97.7 [facility] Comment on above: Performed By: #### L [id number] #### [facility] (DEFAULT) [address] [address] Mean Cell Hgb 30.6 pg Normal 25.9-33.9 [facility] Comment on above: Performed By: #### L [id number] #### [facility] (DEFAULT) [address] [address] Mean Cell Hgb Conc 31.6 g/dL Normal 31.4-35.9 [facility] Comment on above: Performed By: #### L [id number] #### [facility] (DEFAULT) [address] [place] [address] Monocytes (Bld) [#/Vol] 0.40 10*3/uL Normal 0.22-0.87 [facility] Comment on above: Performed By: #### L [id number] #### [facility] (DEFAULT) [address] [address] Monocytes/100 WBC (Bld) 6.4 % Normal [facility] Comment on above: Performed By: #### L [id number] #### [facility] (DEFAULT) [address] [place] [address] Nucleated RBC 0.0 /100 WBC Normal <=0.2 [facility] Comment on above: Performed By: #### L [id number] #### [facility] (DEFAULT) [address] [place] [address] Platelet mean volume (Bld) [Entitic vol] 10.6 fL Normal 8.5-12.2 [facility] Comment on above: Performed By: #### L [id number] #### [facility] (DEFAULT) [address] [place] [address]369 Platelets (Bld) [#/Vol] 273 10*3/uL Normal 150-393 [facility] Comment on above: Performed By: #### L [id number] #### [facility] (DEFAULT) [address] [place] [address] RBC (Bld) [#/Vol] 4.44 10*6/uL Normal 3.91-5.04 [facility] Comment on above: Performed By: #### L [id number] #### [facility] (DEFAULT) [address] [place] [address] 24499 RBC Distribution 12.1 % Normal 10.8-14.9 [facility] Comment on above: Performed By: #### L [id number] #### [facility] (DEFAULT) [address] [place] [address] Segs + Bands Auto 53.3 % Normal [facility] Comment on above: Performed By: #### L [id number] #### [facility] (DEFAULT) [address] [place] [address] Segs + Bands,Absolute Auto 3.34 K/uL Normal 1.64-7.28 [facility] Comment on above: Performed By: #### L [id number] #### [facility] (DEFAULT) [address] [place] [address]00 WBC (Bld) [#/Vol] 6.26 10*3/uL Normal 3.99-11.19 [facility] Comment on above: Performed By: #### L [id number] #### [facility] (DEFAULT) [address] [place] [address] LYME ABon 01-20-2021 Lyme Antibody Negative Normal Negative [facility] Comment on above: Performed By: #### L YME #### [facility] (DEFAULT) [address] [place] [address] VITAMIN B12on 01-20-2021 Cobalamin (Vitamin B12) [Mass/Vol] 1737 pg/mL High 211-911 [facility] Comment on above: Performed By: #### B 12B #### [facility] (DEFAULT) [address] [place] [address] XR SPINE CERVICAL WITH OBL A ND FLEX/EXTon 01-20-2021 XR SPINE CERVICAL WITH OBL AND FLEX/EXT EXAM: XR SPINE CERVICAL WITH OBL AND FLEX/EXT, 01/20/2021 11:01 AM COMPARISON: No prior studies available for comparison. CLINICAL INDICATIONS: cervical pain RELEVANT CLINICAL HISTORY: S16.1XXA:Strain of neck muscle, initial encounter FINDINGS: 6 images obtained including bilateral oblique views and flexion and extension lateral views. Cervical Vertebral: Seven cervical vertebral bodies identified in anatomic alignment. Vertebral body height are maintained. Spinal canal is within normal limits. Flexion and extension views obtained without development of spondylolisthesis or change in the atlantodens interval. Osteopenia. Disc: Disc space narrowing and endplate osteophytes at C5-6 with mild neural foraminal encroachment on the left secondary to posterior osteophytes at this level. Joint: Facet joints are anatomically aligned. Soft Tissue: Prevertebral soft tissues are unremarkable. IMPRESSION: Degenerative disc disease at C5-6. No evidence of instability with flexion and extension. Normal [facility] Office Visit: [facility] wellness e xamon 12-16-2016 Documentation of current medications (procedure) Done Invalid Interpretation Code [facility] Work Phone: Documentation of current medications (procedure) T Invalid Interpretation Code [facility] Work Phone: Fall risk assessment No Invalid Interpretation Code [facility] Work Phone: Tobacco use CPHS Never smoker Invalid Interpretation Code [facility] Work Phone: Office Visiton 12-13-2016 Documentation of current medications (procedure) T Invalid Interpretation Code [facility] Work Phone: Documentation of current medications (procedure) Done Invalid Interpretation Code [facility] Work Phone: Tobacco use CPHS Never smoker Invalid Interpretation Code [facility] Work Phone: Office Visiton 10-18-2016 Documentation of current medications (procedure) Done Invalid Interpretation Code [facility] Work Phone: Protein mass conc Done [facility] Work Phone: Tobacco smoking status HIIS Never smoker [facility] Work Phone: Tobacco use CPHS Never smoker Invalid Interpretation Code [facility] Work Phone: Office Visit: UC: pain in R wriston 04-04-2016 Documentation of current medications (procedure) Done Invalid Interpretation Code [facility] Work Phone: Protein mass conc Done [facility] Work Phone: Tobacco smoking status NHIS Never smoker [facility] Work Phone: Tobacco use CPHS Never smoker Invalid Interpretation Code [facility] Work Phone: Vital Signs Date Time Vital Sign Value Performing Clinician Facility 03-23-2023 15:45-0500 Body height 154.[address] Radha Viveros [facility] Work Phone: [facility] 03-23-2023 15:44-0500 Body mass index (BMI) [Ratio] 34.2 kg/m2 [facility] Radha Viveros [facility] Work Phone: [facility] 03-23-2023 15:44-0500 Body weight 82.[address] [address] Radha Viveros [facility] [address] Work Phone: [facility] 03-23-2023 15:44-0500 Diastolic blood pressure 88 mm[Hg] [facility]Lenny Viveros [facility] Work Phone: [facility] 03-23-2023 15:44-0500 Systolic blood pressure 142 mm[Hg] [facility]Lenny Viveros [facility] Work Phone: [facility] 03-17-2022 11:23-0500 Body height 154.[address] [address]Lenny Viveros [facility] Work Phone: [facility] 03-17-2022 11:12-0500 Body mass index (BMI) [Ratio] 32.5 kg/m2 [facility]Lenny Viveros [facility] Work Phone: [facility] 03-17-2022 11:12-0500 Body weight 78.[address] [address] [facility]Lenny Viveros [facility] [address] Work Phone: [facility] 03-17-2022 11:12-0500 Diastolic blood pressure 82 mm[Hg] [facility]Lenny Viveros [facility] Work Phone: [facility] 03-17-2022 11:12-0500 Systolic blood pressure 130 mm[Hg] [facility]Lenny Viveros [facility] Work Phone: [facility] 12-16-2016 14:07-0400 BMI (Body Mass Index) 30.15 kg/m2 Laura Zhou LPN [facility] Work Phone: 12-16-2016 14:07-0400 Body Temperature 98.9 [degF] Laura Zhou LPN [facility] Work Phone: 12-16-2016 14:07-0400 BP Diastolic 68 mm[Hg] Laura Zhou LPN [facility] Work Phone: 12-16-2016 14:07-0400 BP Systolic 104 mm[Hg] Laura Zhou LPN [facility] Work Phone: 12-16-2016 14:07-0400 Height 154.94 cm Laura Zhou LPN [facility] Work Phone: 12-16-2016 14:07-0400 Pulse (Heart Rate) 82 /min Laura Zhou LPN [facility] Work Phone: 12-16-2016 14:07-0400 Respiratory Rate 13 /min Laura Zhou LPN [facility] Work Phone: 12-16-2016 14:07-0400 Weight 72.39 kg Laura Zhou LPN [facility] Work Phone: 10-18-2016 14:24-0400 BMI (Body Mass Index) 28.34 kg/m2 [facility] Work Phone: 10-18-2016 14:24-0400 Weight 72.58 kg Sara [facility] Work Phone: 04-04-2016 09:32-0500 BMI (Body Mass Index) 30.85 kg/m2 [facility] Work Phone: 04-04-2016 09:32-0500 Body Temperature 98.2 [degF] [facility] Work Phone: 04-04-2016 09:32-0500 BP Diastolic 68 mm[Hg] [facility] Work Phone: 04-04-2016 09:32-0500 BP Systolic 120 mm[Hg] [facility] Work Phone: 04-04-2016 09:32-0500 BSA (Body Surface Area) 1.83 m2 [facility] Work Phone: 04-04-2016 09:32-0500 Height 160.02 cm Socorro [facility] Work Phone: 04-04-2016 09:32-0500 Pulse (Heart Rate) 91 /min Socorro [facility] Work Phone: 04-04-2016 09:32-0500 Respiratory Rate 17 /min Socorro S[facility] Work Phone: 04-04-2016 09:32-0500 Weight 79.02 kg [facility] Work Phone: Encounters Encounter Date Encounter Type Care Provider Facility Start: 10-04-2024 ambulatory Radha Viveros Facility :[facility] Start: 09-21-2024 End: 09-21-2024 ambulatory RADHA [facility] Start: 05-30-2024 End: 05-30-2024 ambulatory RADHA SHARMA [facility] Start: 04-29-2024 ambulatory Janet You Facility: [facility] Start: 03-25-2024 End: 03-25-2024 ambulatory Radha Viveros Facility:[facility] Start: 03-25-2024 End: 03-25-2024 ambulatory Radha Viveros Facility:[facility] Start: 03-04-2024 End: 03-26-2024 ambulatory Janet You Facility:[facility] Start: 02-12-2024 End: 02-12-2024 ambulatory Radha Viveros Facility:[facility] Start: 02-02-2024 End: 02-02-2024 ambulatory Radha Viveros Facility:[facility] Start: 01-23-2024 End: 01-25-2024 ambulatory Janether You Facility:[facility] Start: 01-17-2024 End: 01-17-2024 ambulatory Janether You Facility:[facility] Start: 01-08-2024 End: 01-08-2024 ambulatory Radha Viveros Facility:[facility] Start: 01-05-2024 End: 01-05-2024 ambulatory Radha Viveros Facility:[facility] Start: 01-05-2024 End: 01-05-2024 ambulatory Radha Viveros Facility:[facility] Start: 01-04-2024 End: 01-04-2024 ambulatory Radha Viveros Facility:[facility] Start: 12-26-2023 End: 12-26-2023 ambulatory Radha Viveros Facility:[facility] Start: 03-24-2023 End: 03-24-[address] Radha Viveros [facility] [address] Work Phone: [facility] Work Phone: Start: 03-24-2023 End: 03-24-2023 Patient encounter procedure [facility] Radha Viveros [facility] [address] [facility] Work Phone: [facility] Work Phone: Start: 03-23-2023 End: 03-23-2023 Patient encounter procedure [facility] Radha Viveros [facility] Work Phone: [facility] [place] Work Phone: Start: 07-08-2022 End: 07-08-[address] [address] Radha Viveros [facility] [address] [facility] Work Phone: [facility] Work Phone: Start: 07-08-2022 End: 07-08-2022 Discharged Recurring [facility] Radha Viveros [facility] [address] [address] [facility] Work Phone: [facility] Start: 06-06-2022 End: 06-06-2022 Patient encounter procedure [facility] Radha Viveros [address] [address] [address] [facility] Work Phone: [facility] Start: 05-13-2022 End: 05-13-2022 Patient encounter procedure [facility] Radha Viveros [address] [address] [address] [facility] Work Phone: [facility] Start: 04-11-2022 End: 04-11-2022 ambulatory RODRÍGUEZ ACOSTA [facility] Start: 03-17-2022 End: 03-17-[address] [address] [address] [facility] Radha Viveros [address] [address] [address] [facility] Work Phone: [facility] Work Phone: Start: 03-17-2022 End: 03-17-2022 Patient encounter procedure AISSATOU-Lenny Viveros [facility] [address] [address] [facility] Work Phone: [facility] Start: 11-12-2021 End: 11-12-2021 ambulatory [facility] Work Phone: Start: 11-12-2021 End: 11-12-2021 Patient encounter procedure [facility] Start: 01-20-2021 ambulatory [facility] Facility[facility] Start: 01-20-2021 ambulatory [facility] Procedures Date Procedure Procedure Detail Performing Clinician Start: 03-24-2023 Screening mammography N Geo Viveros NP Work Phone: Start: 06-06-2022 Plain x-ray of wrist [facility] -Lenny Viveros [facility] [address] [facility] Work Phone: Start: 03-17-2022 Screening mammography N Geo Viveros [facility] [address] [facility] Work Phone: Plan of Treatment Date Care Activity Detail Author Start: 05-13-2022 Patient referral [facility] Work Phone: Start: 11-12-2021 Measurement of Borrelia burgdorferi antibody [facility] Work Phone: Start: 12-16-2016 End: 12-16-2016 Appointment Appointment [facility] Work Phone: Start: 12-13-2016 End: 12-13-2016 Appointment Appointment [facility] Work Phone: Start: 10-19-2016 End: 10-19-2016 Physical Therapy General Physical Therapy General Rehab Services, [address] [place] [address], [id number] [facility] Work Phone: Start: 10-19-2016 End: 10-19-2016 Physical Therapy General Physical Therapy General Rehab Services, [address] [place] [address], [address] [facility] Work Phone: Start: 10-18-2016 End: 10-18-2016 EMG EMG [facility] Work Phone: Start: 10-18-2016 End: 10-18-2016 Nerve Conduction Nerve Conduction [facility] Work Phone: Start: 10-18-2016 End: 10-18-2016 Radex wrist complete minimum 3 views X-Ray, Wrist [facility] Work Phone: Start: 10-18-2016 End: 10-18-2016 EMG EMG [facility] Work Phone: Start: 10-18-2016 End: 10-18-2016 Nerve Conduction Nerve Conduction [facility] Work Phone: Start: 10-18-2016 End: 10-18-2016 X-ray exam of wrist X-Ray, Wrist [facility] Work Phone: Laboratory data interpretation [facility] Work Phone: Patient referral [facility] Work Phone: Immunizations Immunization Date Immunization Notes Care Provider Misael [facility] 03-07-2022 influenza, injectabl e, quadrivalent, preservative free [facility] [facility] Radha Viveros [address] [facility] Work Phone: [facility] 03-07-2022 influenza, seasonal, injectable [address] [facility] Radha Viveros [address] [facility] Work Phone: [facility] 01-21-2021 influenza, injectabl e, quadrivalent, preservative free [address] [facility] Radha Viveros [address] [facility] Work Phone: [facility] 01-21-2021 influenza, seasonal, injectable [facility] 03-31-2020 influenza, injectabl e, quadrivalent, preservative free [address] [facility] Radha Viveros [address] [facility] Work Phone: [facility] 03-31-2020 influenza, seasonal, injectable [facility] 01-23-2019 influenza, injectabl e, quadrivalent, preservative free [address] [facility] Radha Velvet [address] [facility] Work Phone: [facility] 01-23-2019 influenza, seasonal, injectable [facility] 03-22-2018 influenza, injectabl e, quadrivalent, preservative free [address] [facility] Radha Velvet [address] [facility] Work Phone: [facility] 03-22-2018 influenza, seasonal, injectable [facility] 01-18-2017 influenza, injectabl e, quadrivalent, preservative free [address] [facility] Radha Velvet [address] [facility] Work Phone: [facility] 01-18-2017 influenza, seasonal, injectable [facility] 01-11-2016 influenza, injectabl e, quadrivalent, preservative free [address] [facility] Radha Velvet [address] [facility] Work Phone: [facility] 01-11-2016 influenza, seasonal, injectable [facility] 02-09-2015 influenza, injectabl e, quadrivalent, preservative free [address] [facility] Radha Velvet [address] [facility] Work Phone: [facility] 02-09-2015 influenza, seasonal, injectable [facility] 02-06-2014 influenza, injectabl e, quadrivalent, preservative free [address] [facility] Radha Velvet [address] [facility] Work Phone: [facility] 02-06-2014 influenza, seasonal, injectable [facility] Payers Date Payer Category Payer Self-pay [id number] 2020 Unknown [id number] 2016 Unknown [id number] 1965 Unknown [id number] 2.16. [id number] 1965 Unknown [id number] 2.16. 840.1.598419.3.579.2.594 1965 Unknown [id number] 2.16. 840.1.508374.3.579.2.594 1963 Unknown [id number] 2.16.84 0.1.854977.3.579.2.651 1965 Unknown [id number] 2.16.8 40.1.089196.3.579.2.651 1965 Unknown [id number] 2.16.8 40.1.244999.3.579.2.651 1965 Unknown [id number] 2.16.8 40.1.985391.3.579.2.651 Unknown [facility] [id number] Unknown [id number] 2.16.8 40.1.838035.3.579.2.462 Unknown [id number] 2.16.8 40.1.862583.3.579.2.462 Unknown [id number] 2.16.8 40.1.030029.3.579.2.462 Unknown [id number] 2.16.8 40.1.415843.3.579.2.462 Unknown [id number] 2.16.8 40.1.408113.3.579.2.462 Unknown [id number] 2.16.8 40.1.749927.3.579.2.462 Unknown [id number] 2.16.8 40.1.760706.3.579.2.462 Unknown [id number] 2.16.8 40.1.039514.3.579.2.462 Unknown [id number] 2.16.8 40.1.839211.3.579.2.462 Unknown [id number] 2.16.8 40.1.295925.3.579.2.462 Unknown [id number] 2.16.8 40.1.111513.3.579.2.462 Unknown [id number] 2.16.8 40.1.313466.3.579.2.462 Unknown [id number] 2.16.8 40.1.178078.3.579.2.462 Unknown [id number] 2.16.8 40.1.422738.3.579.2.462 Social History Date Type Detail Facility Start: 03-30-2021 End: 03-23-2023 Tobacco smoking status NHIS Unknown if ever smoked [facility] Start: 1965 Sex Assigned At Female [facility] Discharge summary 07-08-2022 Note Date & Type Note Facility 07-08-2022 Discharge summary Note Date/Time July 08, 2022 10:25am [facility] Occupational Therapy [facility] [address] [place] [address] / REHABILITATION SERVICES DISCHARGE SUMMARY MR#: [id number] Acct: [id number] Name: KUMAR DANIELLE Rep #: [id number] : 1965 56 From: Jonna Weber OTR/Liseth, CHT Referring Dr.: Dr. Baldomero Sen DO Status: REG RCR Eval Date: Discharge Date: It has been my pleasure to treat KUMAR DANIELLE under orders from Dr. Baldomero Sen DO, for the diagnosis of left radial styloid tenosynovitis for atotal of 10 visit(s). Please see the following information for a summary of their discharge status. % Improvement: 0 Objective/Function: pt continues to demo pain throughout the 1st dorsal compartment-. 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 pt and therapist discussed pt returning to for further intervention. pt agrees with d/c If there are questions or concerns regarding this patient's occupational therapy, please fell free to call me at [phone]. Thank you for the referral of this patient. Sincerely, Jonna Weber, OTR/Liseth, CHT <Electronically signed by Jonna Weber OTR/ANKIT ChildersT> 07/08/22 1025 CC: BARB Viveros; Dr. Baldomero Sen, DO ~ MK Signed [facility] Work Phone: Clinical Note 04-11-2022 Note Date & Type Note Facility 04-11-2022 Note [facility] HISTORY & PHYSICAL NAME ACCOUNT SEX AGE ADMIT DISCHARGE PT MED. RECORD# NUMBER DATE DATE TYPE ANIKET, [id number] F 56 04/11/22 2 KUMAR Kapoor [id number] ROOM: [facility] DATE OF : 61 DICTATING PHYSICIAN: Rodríguez Acosta CHIEF COMPLAINT: Screening endoscopy. HISTORY OF PRESENT [...] Ethanol: None. The patient works at a [employer]. 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 REVIEW OF SYSTEMS: [...] has not had diabetes. Dictated By: Rodríguez Acosta MD 04/11/22 08:27 JOB #: [id number] Transcribed By: marita 04/11/22 09:10 Electronically signed by: E-Sign Dr. Rodríguez Acosta MD 04/11/22 19:27 Update to H&P: [ ] No changes: I have examined the patient and reviewed the H&P and there are no changes. [ ] As previously dictated with the following changes: Page 2 of 3 KUMAR DANIELLE History & Physical KUMAR DANIELLE :1965 PHYSICIAN SIGNATURE: TIME: DATE: Page 3 of 3 KUMAR DANIELLE History & Physical [facility] Evaluation note Note Date & Type Note Facility Evaluation note No assessment information availa [facility] Work Phone: Evaluation note Note Date & Type Note Facility Evaluation note Diagnosis Onset Date Encounter for routine gyneco logical examination noneactive [facility] Work Phone: Evaluation note Note Date & Type Note Facility Evaluation note Diagnosis Onset Date Encounter for routine gyneco logical examination noneactive De Quervain's syndrome (tenosynovitis) acute De Quervain's syndrome (tenosynovitis) [facility] Work Phone: Summary Purpose Family History No Family History Records FoundNo Family History Records FoundNo Family History Records FoundNo Family History Records FoundNo Family History Records Found Advance Directives No Advanced Directives Records Found Advance Directive Response Recorded Date/ Time Living Will No March 30 2 10:17am Power of Core Finisher No March 30 022 10:17am Advance Directive Response Recorded Date/ Time Living Will No March 30 2 9:17am Power of Core Finisher No March 30 9:17am Chief Complaint and Reason for Visit 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 Reason for Visit Encounter for routin e gynecological examination 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 Room 1 RADIAL STYLOID TENOSYNOVITIS/RX HERE Reason for Visit Encounter for routin e gynecological examination De Quervain's syndrome (tenosynovitis) De Quervain's syndrome (tenosynovitis) Additional Source Comments INFORMATION SOURCE (unrecogn ized section and content) DATE CREATED AUTHOR 04/30/2021 [facility] DATE CREATED AUTHOR AUTHOR'S ORGANIZ ATION 04/11/2022 [facility] DATE CREATED AUTHOR AUTHOR'S ORGANIZ ATION 08/29/2024 [facility] DATE CREATED AUTHOR AUTHOR'S ORGANIZ ATION 09/24/2024 [facility] DATE CREATED AUTHOR AUTHOR'S ORGANIZ ATION 09/26/2024 [facility] Goals (unrecognized section and content) Goals may be documented in a n alternate sectionGoals may be documented in an alternate sectionGoals may be documented in an alternate sectionGoals may be documented in an alternate section Care Teams (unrecognized sec tion and content) Team Status: Active Member Role Status Dates Dr. Veronica Jo MD Family Provider Active Radha Viveros [address] [employer], [address] [employer] Primary Care Provider Active Team Status: Inactive Member Role Status Dates Radha Viveros [address] [employer], [address] [employer] Primary Care Provider, Referri ng Provider Active Jacque Stoddard NP, [address] [employer] Attending Provider Active Team Status: Inactive Member Role Status Dates Radha Viveros NP, [address] [employer] Primary Care Provider, Referri ng Provider Active Dr. Baldomero Sen DO Attending Provider Active Team Status: Inactive Member Role Status Dates Radha Viveros NP, [address] [facility] Primary Care Provider Active Dr. Toni Saldana MD Attending Provider Active Team Status: Inactive Member Role Status Dates Radha Viveros NP, [address] [facility] Primary Care Provider Active Jacque Stoddard NP, [address] [employer] Attending Provider, Referring Provider Active Team Status: Inactive Member Role Status Dates Radha Viveros NP, [address] [facility] Primary Care Provider Active Dr. Baldomero Sen DO Attending Provider, Referring Provider Active FOR RECORDS PERTAINING TO PATIENTS WHO ARE [...] BE BASED ON THE PRIMARY CLINICAL RECORDS. [employer] [facility]. provides no warranty or guarantee of the accuracy or completeness of information in this document.
== END | disposition home or self-care (01) ==
LOC: OPBI 10:30
PROVIDERS: PCP Nurse Practitioner Family; Referring Provider Nurse Practitioner Women's Health; Visit Provider Nurse Practitioner Women's Health
DX: Z12.31 Encounter for screening mammogram for malignant neoplasm of breast (principal)
CPT/HCPCS: 77063; 77067